=== PATIENT | male | born 1990 | race Caucasian/White ===

== ENCOUNTER 2016-10-03 17:25 | Observation (INO) | payer OTHER ==
[~2016-10-03] VITALS: Ht 172.7 cm; Wt 77.1 kg
[~2016-10-03 17:25] MED LIST: KEFLEX500 MG PO; ULTRAM(MONOGRAP50 MG PO
--- NOTE | 2016-10-03 17:28 | NUR ---
SECUIRTY AT BEDSIDE FOR WANDING
--- NOTE | 2016-10-03 17:31 | ED PSYCHIATRIC COMPLAINT ---
See Addendum History of Present Illness General Chief Complaint: Psychiatric Related Complaint Stated Complaint: BIBA FOR +SI Source: patient, old records, police Exam Limitations: no limitations Vital Signs & Intake/Output Vital Signs & Intake/Output Vital Signs Date Time Temp Pulse Resp B/P Pulse O2 O2 Flow FiO2 Ox Delivery Rate 10/05 0700 98.8 71 16 106/56 99 Room Air 10/05 0211 98.9 88 18 95/55 95 Room Air 10/04 1823 97.4 76 18 106/55 97 Room Air 10/04 1600 97.7 80 20 103/64 10/04 1600 97.7 80 20 103/64 97 Room Air 10/04 1358 98.2 68 18 96/54 97 Room Air 10/04 1200 96.1 90 20 100/51 10/04 1130 96.1 90 20 100/51 97 Room Air Allergies Uncoded Allergies: CATS/DOGS/POLLEN (05/13/13) Reconcile Medications No Known Home Medications Triage Nurses Notes Reviewed? yes Onset: Gradual Duration: day(s): (3), constant Timing: recent history Severity: mild, moderate Severity Numbers: 6 Associated Symptoms: suicidal ideation HPI: 25-year-old male with history of depression presents brought in by ambulance on police paper after he sent E-MAILS to his ex-girlfriend making suicidal comments over the weekend and that he has had thoughts of wanting to kill himself. There is also report on the police paper that patient has been sending her pictures of animals. The patient was admitted in June of this past year for suicidal ideation at the time. He states he's been doing well and that "if I meant it I wouldn't be here right now" he states that he is currently employed living with his sister and father. He states he is not taking any psychiatric medications. He was prescribed medications in July which she is not aware of at this time are states he stopped taking them because he did not want to. He reports to smoking marijuana today however denies any other drug use. He states last time he drank alcohol was over the weekend when he made these statements. The patient is otherwise currently without any complaints. The patient denies depression anxiety and insomnia recent weight loss (ANNA MICHAEL,RYANN) Past History Travel History Traveled to [place] past 21 day No Medical History Any Pertinent Medical History? see below for history Neurological: NONE EENT: NONE Cardiovascular: NONE Respiratory: asthma Gastrointestinal: NONE Hepatic: NONE Renal: NONE Musculoskeletal: NONE Psychiatric: depression, insomnia, substance abuse (regular use of Marijuana ), had used Vyvanse "from friends" until 02/2016 had drank a six-pack of beer for two weeks in 05/2016 but then gave that up "because it was making me more depressed" Endocrine: NONE Blood Disorders: NONE Cancer(s): NONE STRATEGY LEAD/Reproductive: NONE History of MRSA: No History of VRE: No History of CDIFF: No Tetanus Vaccine: 03/24/15 Surgical History Surgical History: Right little finger tendon repair s/p work related accident/ injury. Psychosocial History Who do you live with Father Services at Home None What is your primary language Swazi Family History Family History, If Any: FATHER (Depression). MOTHER (DepressionAsthma). Hx Contributory? No (RYANN MENENDEZ) Review of Systems Review of Systems Constitutional: Reports: see HPI. All Other Systems: Reviewed and Negative Comments Review of systems: See HPI, All other systems negative. Constitutional, no chills no fever, no malaise HEENT: No visual changes no sore throat no congestion Cardiovascular: No chest pain , no palpitation Skin, no rashes, no change in skin Respiratory: No dyspnea no cough no sputum GI: No nausea no vomiting, no diarrhea, : No dysuria Muscle skeletal: No joint pain, no back pain, no neck pain, Neurologic: No numbnessno headache Psych: No stress no anxiety no depression,. 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 moist mucous membranes. Neck: Supple, normal range of motion Back: Nontender, no CVA tenderness. Full range of motion Cardiovascular: Regular rate and rhythms no murmurs rubs Respiratory: No respiratory distress. Patient speaking in full complete sentences. Breath sounds clear to auscultation bilaterally: NO W/R/R Abdomen: Soft, nontender Extremity: No edema, full range of motion of extremities Neuro: Alert oriented x3, motor sensory normal,There were no obvious focal neurologic abnormalities. Skin: No appreciable rash on exposed skin, skin is warm and dry. Psych: Mood and affect is normal, memory and judgment is normal. SAD PERSONS SAD PERSONS Response Value Male Sex? yes 1 Previous Attempts/Psych Care yes 1 Excessive Ethanol/Drug Use? yes 1 Rational Thinking Loss? yes 2 Single//? yes 1 Social Support? has support 0 Total 6 SAD PERSONS Done? yes (ANNA MICHAEL,RYANN) Progress Differential Diagnosis: drug intoxication, drug overdose, electrolyte abnormality, depression anxiety and bipolar Plan of Care: Orders Procedure Date/time Status Admit to inpatient psych 10/05 1004 Active Discharge Patient 10/05 1004 Active Regular Diet 10/04 D Active Continuous Observation Monitor 10/04 2100 Active Continuous Observation Monitor 10/04 1700 Active Continuous Observation Monitor 10/04 1300 Active Patient Data - inpatient psych 10/04 1146 Active Admit to inpatient psych 10/04 1146 Active Lab Add-on Test 10/04 UNK Active Vital Signs 10/04 UNK Active Nursing Misc 10/04 UNK Active CIWA 10/04 UNK Active Alternative Nursing Therapy 10/04 UNK Active Activity/Ambulation 10/04 UNK Active THYROID STIMULATING HORMONE 10/03 1746 Complete LIPID PANEL 10/03 1746 Complete GLYCOSYLATED HGB 10/03 1738 Active Current Medications Sig/Abelardo Start time Last Medication Dose Stop Time Status Admin Acetaminophen 650 MG Q6P PRN 10/04 1200 AC (Tylenol) Al Hydroxide/Mg 30 ML Q4-6 PRN PRN 10/04 1200 AC Hydroxide (Maalox Plus) Lorazepam 2 MG Q2P PRN 10/04 1200 AC (Ativan) Lorazepam 1 MG Q2P PRN 10/04 1200 AC (Ativan) Magnesium Hydroxide 30 ML AT BEDTIME PRN 10/04 1200 AC (Milk Of Magnesia) Folic Acid 1 MG DAILY 10/04 1151 AC (Folic Acid) Multivitamins 1 TAB DAILY 10/04 1151 AC (Theragran Vitamins) Thiamine HCl 100 MG DAILY 10/04 1151 AC (Vitamin B1) Labs ordered old records reviewed patient calm cooperative at this time denies suicidal ideation at this time crisis consult ordered. 2039 case d/w dr fernandez pendig pt reeval in the am (RYANN MENENDEZ) 7:19 am 10/04 Patient signed out to me by Dr. Fernandez. Pending crisis evaluation and disposition. 10/05/2016 7:20:54 AM Patient signed out to me by Dr. Aguirre. Pending crisis admission. (MARYELLEN NATION MD) Hand-Off Endorsed To: MAURICE FERNANDEZ MD Endorsed Time: 2100 Pending: consult (crisis) (RYANN MENENDEZ) Hand-Off Endorsed To: MARYELLEN NATION MD Endorsed Time: 0700 Pending: consult (MAURICE FERNANDEZ MD) Departure Departure Disposition: STILL A PATIENT Condition: Stable Clinical Impression Primary Impression: Suicidal ideation Secondary Impressions: Cannabis abuse Referrals: WILBER LO APRN (PCP/Family) Departure Forms: Customer Survey General Discharge Information Prescriptions: Current Visit Scripts No Known Home Medications (RYANN MENENDEZ) PA/PRECAST WORKER Co-Sign Statement Statement: ED Attending supervision documentation- [X] I saw and evaluated the patient. I have also reviewed all the pertinent lab results and diagnostic results. I agree with the findings and the plan of care as documented in the PA's/PRECAST WORKER's documentation. [X] I have reviewed the ED Record and agree with the PA's/PRECAST WORKER's documentation. [] Additions or exceptions (if any) to the PAs/PRECAST WORKER's note and plan are summarized below: [] (MAURICE FERNANDEZ MD) Departure Time of Disposition: 1005 Psych Admission Note Psychiatric Admission: I have seen and evaluated TRENT GARCIA III. I have also reviewed all the pertinent lab results and diagnostic results. TRENT GARCIA III will be admitted to our inpatient Psychiatric unit for treatment and care. (MARYELLEN NATION MD) ED Attending Observation Initial Observation Note: I have seen and personally examined TRENT GARCIA III on 10/03/16 at 2219. I agree with the current emergency department documentation. The disposition (admission or discharge) is uncertain at this time, he needs a period of observation for the following reason(s): [Patient has been seen and evaluated by the conservation worker. The patient is very impulsive and is having bursts of anger. The patient is to be observed in the emergency department overnight for reevaluation in the morning. At this point they do not know if the patient will be admitted or be able to be discharged in the morning. Patient is going to require one-to-one monitoring for safety tonight. If the patient up bursts continued to escalate he may require chemical sedation.] The ED Nurse caring for this patient has been personally informed as to what the patient is being observed for. Observation Re-Evaluation: I have reevaluated TRENT GARCIA III on 10/04/16 at 0144. The physical findings that support the continued need to observe this patient include [patient sleeping peacefully. No further outbursts. Lungs are clear to auscultation. Cardiac exam is regular rate and rhythm.]. (REBECCA GRANADOS,MAURICE Álvarez) Initial Observation Note: I have seen and personally examined TRENT GARCIA III on 10/05/16 at 1005. I agree with the current emergency department documentation. The disposition (admission or discharge) is uncertain at this time, he needs a period of observation for the following reason(s): The ED Nurse caring for this patient has been personally informed as to what the patient is being observed for. Observation Re-Evaluation: I have reevaluated TRENT GARCIA III on 10/04/16 at 0732. The physical findings that support the continued need to observe this patient include [PATIENT RESTING COMFORTABLY, WAITING CRISIS EVALUATION]. Observation Discharge: I have reevaluated TRENT GARCIA III on 10/05/16 at 1005. The patient is: (): Stable for discharge ([X]): To be admitted to Nursing Floor (): To be placed in Observation on Nursing Floor (): For transfer to other facility The patient was being observed for [SUICIDAL IDEATION] As a result of that observation, I have determined [ADMISSION TO [facility]]. (RIOS GRANADOS,MARYELLEN)
--- NOTE | 2016-10-03 17:31 | NUR ---
25 YO MALE BIBA FROM HOME ON . PT STATES HE SENT HIS EX GIRLFRIEND A TEXT MESSAGE ON MONDAY MAKING +SI COMMENTS. "SEE I OBVISOUSLY DIDNT MEAN IT BECAUSE IM STILL HERE" PT STATES "YA KNOW YOU SAY STUPID STUFF WHEN YOU ARE DRUNK" PT DENIES SI/HI. DENIES ALCOHOL OR DRUG USE TODAY. ADMITS TO SMOKING MARIJUANA SOMETIMES. PT CALM AND COOPERATIVE AT THIS TIME. SITTER PRESENT.
--- NOTE | 2016-10-03 17:40 | NUR ---
PA AT BEDSIDE FOR EVAL
--- NOTE | 2016-10-03 17:51 | NUR ---
BLOOD WORK AND URINE COLLECTED AND SENT TO LAB. PT REMAINS CALM AND COOPERATIVE AT THIS TIME. SITTER REMAINS PRESENT
[2016-10-03 18:01] LABS: ABSOLUTE BASOPHIL COUNT 0 /CUMM (0.0-0.2); ABSOLUTE EOSINOPHIL COUNT 0.1 /CUMM (0.0-0.7); ABSOLUTE GRANULOCYTE CT 2.7 /CUMM (1.4-6.5); ABSOLUTE LYMPH COUNT 1.8 /CUMM (1.2-3.4); ABSOLUTE MONOCYTE COUNT 0.5 /CUMM (0.10-0.60); BASOPHIL % 0.9 % (0.0-2.0); EOSINOPHIL % 2.7 % (0-5); GRANULOCYTE % 51.9 % (42.2-75.2); HEMATOCRIT 46.6 % (42-52); MEAN CORPUSCULAR HGB 31.9 PG (27.0-31.0); MEAN CORPUSCULAR HGB CONC 33.8 G/DL (33.0-37.0); MEAN CORPUSCULAR VOLUME 94.3 FL (80.0-94.0); PLATELET COUNT 284 /CUMM (130-400); RBC DISTRIBUTION WIDTH 12.8 % (11.5-14.5); RED BLOOD CELL CT 4.94 /CUMM (4.70-6.10); WHITE BLOOD CELL COUNT 5.2 /CUMM (4.8-10.8)
--- NOTE | 2016-10-03 18:50 | NUR ---
PT RESTING ON STRETCHER. OFFERS NO COMPLINATS. AWARE WAITING TO SEE CRISIS AT THIS TIME. WILL CTM. SITTER REMAINS PRESENT
--- NOTE | 2016-10-03 18:57 | NUR ---
PT REPORTS TO THIS RN, "I WANT TO LEAVE THIS [facility]." PT VERBALLY DEESCALATED AND CRISIS AWARE PT IS BECOMING AGITATED AND WILL SPEAK TO PATIENT ABOUT PLAN OF CARE.
--- NOTE | 2016-10-03 19:11 | NUR ---
ASSUMED CARE OF PT PER RN CAROL, PT INFORMED THAT PT WILL BE SEEN BY CRISIS NEXT ON THE LIST. WILL CONTINUE TO MONITOR.
--- NOTE | 2016-10-03 19:38 | ED PSYCH CRISIS CONSULTATION ---
See Addendum Crisis Consult Basic Assessment Date of Consult: 10/03/16 Responsible Person/Accompanied By: LUPE Insurance Authorization: Insurance #1: Insurance name: [employer] Phone number: Policy number: [id number] Group number: [id number] Authorization number: ED Provider: Patient's ED Provider: RYANN MENENDEZ Primary Care Physician: Patient's PCP: WILBER LO APRN PCP's Current Psychiatrist: None/stopped [facility] in Aug 2016 Chief Complaint: Psychiatric Related Complaint Patient's Quote: "I got drunk a week ago, and said I wanted to hurt myself, I don't want to Present Illness: Pt is a 25 year old male, arriving to ER due to texting an ex girlfriend that he was going to kill himself, while he was intoxicated, pt states this was on Monday. He then didn't return home until today when he arrived his Father told him the police were looking for him, and he was brought here for further evlauation. Pt is aggravated and states "this is a dis service to anyone". Pt indicates he does not want to harm himself, and reports he only said that via text while he was drunk. Pt states he does not want to drink anymore and reports he was actually taking care of job related things today and was feeling positive until he had to come to the emergency room. [facility]2016 and did not complete [facility], pt does not have current providers and is no longer taking his antidepressant. Pt tox screen is postive for [facility]. Pt lives with father and sister (see note, I spoke with sister). I also spoke with his Mother, who indicates pt sent her similar text message about self harm. At the very least pt is unpredictable, and impulsive. Mother states 'he is his own worse enemy". Pt had been discharged on Wellbutrin, but had been prescribed xanax and lexapro by an outpatient provider whom he no longer sees. He does not comply with medications. Patient's Address: [address] [place] [address] Other Phone Number: Who Do You Live With? Family (Father and sister) Family/Informants Interviewed: Nicolle his sister has called, and reports he is a very senstive and reports he doesn't know how to take care of himself emotionally, and reports he needs to learn how to grow up. Mother Lupis Sharma [phone] wants an update, she is unsure he can be safe at this point. Allergies - Uncoded Allergies: CATS/DOGS/POLLEN (05/13/13) Current Medications - No Known Home Medications Laboratory Results: Laboratory Tests 10/03/16 1746: Serum Alcohol < 10.0 10/03/16 1746: Anion Gap 16, Estimated GFR > 60, BUN/Creatinine Ratio 15.0, Glucose 88, Calcium 9.7, Total Bilirubin 1.6 H, AST 18, ALT 19 L, Alkaline Phosphatase 89, Total Protein 7.2, Albumin 4.6, Globulin 2.6, Albumin/Globulin Ratio 1.8, CBC w Diff NO MAN DIFF REQ, RBC 4.94, MCV 94.3 H, MCH 31.9 H, RDW 12.8, MPV 9.0, Gran % 51.9, Lymphocytes % 35.0, Monocytes % 9.5 H, Eosinophils % 2.7, Basophils % 0.9 , Absolute Granulocytes 2.7, Absolute Lymphocytes 1.8, Absolute Monocytes 0.5, Absolute Eosinophils 0.1, Absolute Basophils 0, PUBS MCHC 33.8, Urine Opiates Screen 247.00, Methadone Screen < 40, Barbiturate Screen < 60, Ur Phencyclidine Scrn < 6.00, Amphetamines Screen < 100, U Benzodiazepines Scrn < 85, Urine Cocaine Screen < 50, Urine Cannabis Screen > 80.00 H (DAVID GONG,REY) Basic Assessment Primary Care Physician: Patient's PCP: WILBER LO APRN PCP's (KJ GONG,ROMY) Past History Past Medical History Neurological: NONE EENT: NONE Cardiovascular: NONE Respiratory: asthma Gastrointestinal: NONE Hepatic: NONE Renal: NONE Musculoskeletal: NONE Psychiatric: depression, insomnia, substance abuse (regular use of Marijuana ), had used Vyvanse "from friends" until 02/2016 had drank a six-pack of beer for two weeks in 05/2016 but then gave that up "because it was making me more depressed" Endocrine: NONE Blood Disorders: NONE Cancer(s): NONE 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 Psychosocial History Strengths/Capabilities: The patient has shown good insight into his need for treatment in the past. He also has a supportive family. Physical Limitations (Interventions): None noted Psychiatric Treatment History Psych Treatment Psychiatric Treatment Yes Inpatient Treatment Yes Outpatient Treatment Yes Location of Treatment [facility] Reason for Treatment Depression/etoh abuse Dates of Treatment Jul 19 2016 and Jul 2016 (IOP) Response to Treatment did well in [facility] and felt better, at the IOP he arrived drunk and left the building the police were called. Diagnosis by History: F32.3 MDD, severe recurrent Cannabis Use D/O Substance Use/Abuse History Drug Use/Abuse 1 Substances Used/Abused Yes Substance Used/Abused Alcohol First Use 17 years Last Used Monday How much used/taken unknown How often unknown For how long on and off for past month Route of use oral Drug Use/Abuse 2 Substances Used/Abused Yes Substance Used/Abused Marijuana First Use 20 years Last Used today How much used/taken unknown How often daily For how long years Route of use smoke Substance Abuse Treatment Substance Abuse Treatment Past Substance Abuse TX Yes Inpatient Treatment No Outpatient Treatment Yes Location of Treatment [facility] Reason for Treatment etoh/[place] Dates of Treatment 2015 Response to Treatment didn't complete IOP (REY HERNANDEZ LCSW) Current Mental Status Mental Status Orientation: Person, Place, Situation Affect: Anxious, Angry, Variable Speech: Loud, WNL Neuro-vegetative: Energy Increased, Helpless, Hyperactivity, Sleep Disturbance Appearance Appearance- Dress/Hygiene: WNL Behaviors Thought Process: Irrational Thought Content: Entitled, Grandiose, Paranoid Memory: WNL Insight: Poor SI/HI Risk Assessment Past Suicidal Ideation/Attempts Yes Current Suicidal Ideation/Att Yes Past Homicidal Ideation/Att: No Current Homicidal Ideation/Attempts No Degree of Intent: States Intent Danger To: Self Gravely Disabled: Lack of Insight, Poor Impulse Control Risk Factors: SA/MH hospitalized, substance abuse, poor impulse control, male, limited support Lethality Ratin PTSD Checklist PTSD Done? patient declined ED Management Sitter: Yes Restraints: No (REY HERNANDEZ LCSW) DSM5/PS Stressors/Medical Prob Diagnosis' (DSM 5, Stressors, Medical): MDD recurrent severe F33.2 Cannabis D/O Moderate F12.20 Current GAF: 28 (REY HERNANDEZ LCSW) Departure Disposition Psych Medical Clearance Date: 10/03/16 Medically Cleared at: 1930 Time Started: 1929 Time Ended: 2035 Psychiatrist Consulted: Svitlana Hemphill Disposition Established: 10/03/16 Time Disposition Established: 2035 Plan for Disposition - Modality: Hold Over Follow-up Appt Date: 10/04/16 Rationale for Disposition: Consulted with Dr. Shane pt to be held over night for re eval in morning. Pt denying si, although had sent concerning texts this weekend to ex gf and Mother. Pt angry and impulsive. Additional Instructions: Not at this time Referrals WILBER LO APRN (PCP/Family) (REY HERNANDEZ LCSW) Disposition Psych Medical Clearance Date: 10/04/16 Medically Cleared at: 1030 Time Started: 1029 Time Ended: 1044 Psychiatrist Consulted: Bandar Siegel MD Disposition Established: 10/04/16 Time Disposition Established: 1044 Plan for Disposition - Modality: Inpatient Psychiatry Facility: [facility] Rationale for Disposition: safety and stabilization Type of IP Admission: PEC (ROMY UNDERWOOD LCSW) Addendum Addendum Pt was re-evaluated by crisis this morning following several verbal outbursts of profanity, agitation, and mood lability. Pt was sitting in his bed whistling loudly when this clinician entered his room. He provided minimal insight into the severity of the concerns that lead him to his ED visit. Pt took no responsibility for his behavior and blames others calling them names. This clinician spoke to pt's Mom who was very concerned for pt identifying that he has been having severe mood swings and she no longer recognizes her son. This clinician read pt's hx from his prior admit in Jun 2016 and pt has a hx of suicide attempts and impulsive behavior. Given family concerns, hx of suicide attempts, poor insight, impulsive behavior, and labile mood as well as suicidal text messages and disappearance for several days following the text messages this clinician has great concerns for pt's safety risks. Case reviewed with Dr. Siegel of Psychiatry and pt will be admitted to [facility] as pt is refusing to be admitted and wants to be discharged. When this clinician explained to pt that he will be admitted and why, he threw his lunch tray at this clinician and started yelling and swearing. He requires security intervention and chemical restraint. (KJ GONG,ROMY)
--- NOTE | 2016-10-03 20:12 | NUR ---
PT BECOMING AGITATED SINCE HE WAS INFORMED BY CRISIS THAT HE NEEDS A REEVAL IN THE MORNING. PT SWEARING AND BECOMING FRUSTRATED. THIS RN INFORMED PT HE NEEDS TO STAY INTIL THE MORNING
--- NOTE | 2016-10-03 20:44 | NUR ---
PT MOVED TO RM 15 DUE TO DISTURBANCE AND VIOLENT LANGUAGE IN HALLWAY
--- NOTE | 2016-10-03 21:33 | NUR ---
PT MEDICATED WITH SEROQUEL 25MG PO AND GIVEN SALTINES.
--- NOTE | 2016-10-03 22:42 | NUR ---
PT SLEEPING WITH RR, SITTER IN PLACE AT DOOR
--- NOTE | 2016-10-04 00:52 | NUR ---
PT SLEEPING WITH RR, TOSSING AND TURNING. SITTER IN PLACE AT DOOR
--- NOTE | 2016-10-04 05:19 | NUR ---
PT RESTING ON BED. RR NOTED. SITTER IN PLACE.
--- NOTE | 2016-10-04 06:44 | NUR ---
PT SLEEPING WITH RR, THIS RN CHECKED VITALS, VVSS. PT INFORMED BREAKFAST ORDERED
--- NOTE | 2016-10-04 07:30 | NUR ---
RESTING ON BED. RR WNL. Informed waiting has been performed.
--- NOTE | 2016-10-04 09:05 | NUR ---
PT AWAKE, AMBULATED TO BATHROOM WITH STEADY GAIT. SWEARING AT STAFF. PROVIDED BREAKFAST. AWARE HE IS A CRISIS RE-EVAL TODAY. Informed waiting has been performed.
--- NOTE | 2016-10-04 09:35 | NUR ---
PT ACTING OUT. AWARE HE IS NEXT TO BE SEEN BY CRISIS. ADVISED TO REMAIN CALM. Informed waiting has been performed.
--- NOTE | 2016-10-04 10:29 | NUR ---
CRISIS AT BEDSIDE.
--- NOTE | 2016-10-04 11:15 | NUR ---
PT WAS INFORMED BY CRISIS THAT HE WILL NEED TO BE ADMITTED TO [facility]. 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 PT MEDICATED WITH IM HALDOL, BENADRYL AND ATIVAN. AWARE HIS AGGRESSIVE BEHAVIOR WILL NOT BE TOLERATED. COOPERATIVE FOR IM INJECTIONS. Informed waiting has been performed.
--- NOTE | 2016-10-04 11:55 | NUR ---
PT NOT GIVEN PO AM VITAMINS. PT CURRENTLY RESTING COMFORTABLY. NO LONGER YELLING OR AGGRESSIVE WITH STAFF.
[2016-10-04 12:00] VITALS: BP 100/51
--- NOTE | 2016-10-04 12:02 | IP CRISIS DIAG ASSESS PSYCH ---
See Addendum Diagnostic Assessment Basic Assessment Insurance Authorization: Insurance #1: Insurance name: BLAIR O Phone number: [phone] Policy number: [id number] Group number: [id number] Authorization number: Spoke to Shivam at [facility] who informed that a clinician will call back with in 24 hours to review clinical to do insurance precert. Primary Care Physician: Patient's PCP: WILBER LO APRN PCP's Patient's Quote: "I got drunk a week ago, and said I wanted to hurt myself, I don't want to Present Illness: Pt is a 25 year old male, arriving to ER due to texting an ex girlfriend that he was going to kill himself, while he was intoxicated, pt states this was on Monday. He then didn't return home until today when he arrived his Father told him the police were looking for him, and he was brought here for further evlauation. Pt is aggravated and states "this is a dis service to anyone". Pt indicates he does not want to harm himself, and reports he only said that via text while he was drunk. Pt states he does not want to drink anymore and reports he was actually taking care of job related things today and was feeling positive until he had to come to the emergency room. [facility] and did not complete [facility], pt does not have current providers and is no longer taking his antidepressant. Pt tox screen is postive for [facility]. Pt lives with father and sister (see note, I spoke with sister). I also spoke with his Mother, who indicates pt sent her similar text message about self harm. At the very least pt is unpredictable, and impulsive. Mother states 'he is his own worse enemy". Pt had been discharged on Wellbutrin, but had been prescribed xanax and lexapro by an outpatient provider whom he no longer sees. He does not comply with medications. Consulted with Dr. Shane pt to be held over night for re eval in morning. Pt denying si, although had sent concerning texts this weekend to ex gf and Mother. Pt angry and impulsive. REY HERNANDEZ CLEAN RICE BROKER> 10/03/16 Pt was re-evaluated by crisis this morning following several verbal outbursts of profanity, agitation, and mood lability. Pt was sitting in his bed whistling loudly when this clinician entered his room. He provided minimal insight into the severity of the concerns that lead him to his ED visit. Pt took no responsibility for his behavior and blames others calling them names. This clinician spoke to pt's Mom who was very concerned for pt identifying that he has been having severe mood swings and she no longer recognizes her son. This clinician read pt's hx from his prior admit in Jun 2016 and pt has a hx of suicide attempts and impulsive behavior. Given family concerns, hx of suicide attempts, poor insight, impulsive behavior, and labile mood as well as suicidal text messages and disappearance for several days following the text messages this clinician has great concerns for pt's safety risks. Case reviewed with Dr. Siegel of Psychiatry and pt [facility] as pt is refusing to be admitted and wants to be discharged. When this clinician explained to pt that he will be admitted and why, he threw his lunch tray at this clinician and started yelling and swearing. He required security intervention and chemical restraint. ROMY UNDERWOOD CLEAN RICE BROKER> 10/04/16 Patient's Address: [address] [place] [address] Other Phone Number: Who Do You Live With? Family (Father and sister) Feel Safe Where You Live? Yes Feel Safe in Your Relationship Yes Marital Status: single Do You Have Children? No Primary Language? [place] Language(s) Spoken At Home: [place] Family/Informants Interviewed: Nicolle his sister has called, and reports he is a very senstive and reports he doesn't know how to take care of himself emotionally, and reports he needs to learn how to grow up. Mother Lupis [phone] wants an update, she is unsure he can be safe at this point. Allergies - Uncoded Allergies: CATS/DOGS/POLLEN (05/13/13) Current Medications - No Known Home Medications Lab Results: Laboratory Tests 10/03/16 1746: Serum Alcohol < 10.0 10/03/16 1746: Anion Gap 16, Estimated GFR > 60, BUN/Creatinine Ratio 15.0, Glucose 88, Calcium 9.7, Total Bilirubin 1.6 H, AST 18, ALT 19 L, Alkaline Phosphatase 89, Total Protein 7.2, Albumin 4.6, Globulin 2.6, Albumin/Globulin Ratio 1.8, Triglycerides 98, Cholesterol 123, LDL Cholesterol, Calc 61 L, HDL Cholesterol 43, Cholesterol/HDL Ratio 3, TSH Pending, CBC w Diff NO MAN DIFF REQ, RBC 4.94, MCV 94.3 H, MCH 31.9 H, RDW 12.8, MPV 9.0, Gran % 51.9, Lymphocytes % 35.0, Monocytes % 9.5 H, Eosinophils % 2.7, Basophils % 0.9, Absolute Granulocytes 2.7, Absolute Lymphocytes 1.8, Absolute Monocytes 0.5, Absolute Eosinophils 0.1, Absolute Basophils 0, PUBS MCHC 33.8, Urine Opiates Screen 247.00, Methadone Screen < 40, Barbiturate Screen < 60, Ur Phencyclidine Scrn < 6.00, Amphetamines Screen < 100, U Benzodiazepines Scrn < 85, Urine Cocaine Screen < 50, Urine Cannabis Screen > 80.00 H 10/03/16 1738: Hemoglobin A1c Pending Toxicology Screen Completed? Yes Results: positive Past History Past Medical History Medical History: Asthma Past Surgical History Surgical History none Abuse/Trauma History Trauma History/Current Trauma: Denies Legal History Current Legal Status: none Have you ever been arrested? 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 He also has a supportive family. Physical Limitations (Interventions): None noted Psychiatric Treatment History Psych Treatment Psychiatric Treatment Yes Inpatient Treatment Yes Outpatient Treatment Yes Location of [facility] Reason for Treatment Depression/etoh abuse Dates of Treatment Jul 19 2016 and Jul 2016 (IOP) Response to Treatment did well in [facility] and felt better, at the IOP he arrived drunk and left the building the police were called. Diagnosis by History: F32.3 MDD, severe recurrent Cannabis Use D/O Risk Factors: SA/MH hospitalized, substance abuse, poor impulse control, male, limited support Substance Use/Abuse History Drug Use/Abuse minimum 12mo Hx Substances Used/Abused Yes Substance Used/Abused Marijuana First Use 20 years Last Used today How much used/taken unknown How often daily For how long years Route of use smoke Substance Abuse Treatment Substance Abuse Treatment Past Substance Abuse TX Yes Inpatient Treatment No Outpatient Treatment Yes Location of Treatment IOP Reason for Treatment etoh/marajuana Dates of Treatment 2016 Response to Treatment didn't complete IOP Sexual History Sexual Concerns: None noted Education History Highest Level of Education: high school/GED Preferred Learning Style: auditory Current Mental Status Mental Status Orientation: Person, Place, Situation Affect: Anxious, Angry, Variable Speech: Loud, WNL Neuro-vegetative: Energy Increased, Helpless, Hyperactivity, Sleep Disturbance Appearance Appearance- Dress/Hygiene: WNL Behaviors Thought Process: Irrational Thought Content: Entitled, Grandiose, Paranoid Memory: WNL Insight: Poor SI/HI Risk Assessment - Minimum 6mo History- Past Suicidal Ideation/Attempts Yes Current Suicidal Ideation/Att Yes Past Homicidal Ideation/Att: No Current Homicidal Ideation/Attempts No Degree of Intent: States Intent Danger To: Self Gravely Disabled: Lack of Insight, Poor Impulse Control Risk Factors: SA/MH hospitalized, substance abuse, poor impulse control, male, limited support Lethality Ratin Needs/Init TX Plan/Goals: safety and stabilization of sx, individual group and family therapy, med eval AUDIT-C Questionnaire: AUDIT-C Questionnaire: Response Value ETOH use in the past year 2-4 times/week 3 # drinks typical/day 7-9 3 6 or > drinks per occasion Weekly 3 Total 9 DSM5/PS Stressors/Medical Prob Diagnosis' (DSM 5, Stressors, Medical): MDD recurrent severe F33.2 Cannabis D/O Moderate F12.20 Current GAF: 28
--- NOTE | 2016-10-04 12:30 | NUR ---
SLEEPING SOUNDLY. RR WNL.
--- NOTE | 2016-10-04 12:46 | SOCIAL WORKER SOCIAL HX PSYCH ---
See Addendum Social History Basic Assessment Insurance Authorization: Insurance #1: Insurance name: BLAIR BONE Phone number: Policy number: [id number] Group number: [id number] Authorization number: [id number] Curr Source of Income/Entitlements: father Primary Care Physician: Patient's PCP: WILBER LO APRN PCP's Present Problem: Pt is a 25 year old male, arriving to ER due to texting an ex girlfriend that he was going to kill himself, while he was intoxicated, pt states this was on Monday. He then didn't return home until today when he arrived his Father told him the police were looking for him, and he was brought here for further evlauation. Pt is aggravated and states "this is a dis service to anyone". Pt indicates he does not want to harm himself, and reports he only said that via text while he was drunk. Pt states he does not want to drink anymore and reports he was actually taking care of job related things today and was feeling positive until he had to come to the emergency room. [facility]2016 and did not complete [facility], pt does not have current providers and is no longer taking his antidepressant. Pt tox screen is postive for [facility]. Pt lives with father and sister (see note, I spoke with sister). I also spoke with his Mother, who indicates pt sent her similar text message about self harm. At the very least pt is unpredictable, and impulsive. Mother states 'he is his own worse enemy". Pt had been discharged on Wellbutrin, but had been prescribed xanax and lexapro by an outpatient provider whom he no longer sees. He does not comply with medications. Consulted with Dr. Shane pt to be held over night for re eval in morning. Pt denying si, although had sent concerning texts this weekend to ex gf and Mother. Pt angry and impulsive. REY HERNANDEZ FUSE SPOOLER> 10/03/16 Pt was re-evaluated by crisis this morning following several verbal outbursts of profanity, agitation, and mood lability. Pt was sitting in his bed whistling loudly when this clinician entered his room. He provided minimal insight into the severity of the concerns that lead him to his ED visit. Pt took no responsibility for his behavior and blames others calling them names. This clinician spoke to pt's Mom who was very concerned for pt identifying that he has been having severe mood swings and she no longer recognizes her son. This clinician read pt's hx from his prior admit in Jun 2016 and pt has a hx of suicide attempts and impulsive behavior. Given family concerns, hx of suicide attempts, poor insight, impulsive behavior, and labile mood as well as suicidal text messages and disappearance for several days following the text messages this clinician has great concerns for pt's safety risks. Case reviewed with Dr. Siegel of Psychiatry and pt [facility] be [facility] as pt is refusing to be admitted and wants to be discharged. When this clinician explained to pt that he will be admitted and why, he threw his lunch tray at this clinician and started yelling and swearing. He required security intervention and chemical restraint. ROMY UNDERWOOD FUSE SPOOLER> 10/04/16 Primary Language? Norwegian Language(s) Spoken At Home: Norwegian Living Situation Rents or Owns Home? rents Other Living Arrangement: lives with father and sister Feel Safe Where You Are Living Yes Feel Safe in Relationships? Yes Allergies - Uncoded Allergies: CATS/DOGS/POLLEN (05/13/13) Current Medications - No Known Home Medications Past History Past Medical History Neurological: NONE EENT: NONE Cardiovascular: NONE Respiratory: asthma Gastrointestinal: NONE Hepatic: NONE Renal: NONE Musculoskeletal: NONE Psychiatric: depression, insomnia, substance abuse (regular use of Marijuana ), had used Vyvanse "from friends" until 02/2016 had drank a six-pack of beer for two weeks in 05/2016 but then gave that up "because it was making me more depressed" Endocrine: NONE Blood Disorders: NONE Cancer(s): NONE COLOR TESTER/Reproductive: NONE Past Surgical History Surgical History: Right little finger tendon repair s/p work related accident/ injury. /Family History Place/Country of Origin: [place] Childhood Family Constellation: Parents and his sister Primary Childhood Caretakers: father, mother Family Life During Childhood: "Not bad" He states that he was raised by both parents until they and then he spent time at both households. DCF Involvement? No Explain: N/A Mother's Age (Current/): 49 Relationship w/Mother: "Good" Father's Age (Current/): 54 Relationship w/Father: "good" Any Sibling(s)? Yes Sibling's Gender(s)/Age(s): female Sibling 1: Relationship w/Sibling(s): The patient reports that he lives with his sister and has an ok relationship with her. Relationship w/Friends: Unknown Family Psych/Sub Abuse/Add Hx: Unknown Abuse/Trauma History Trauma History/Current Trauma: Denies Legal History Legal Guardian/Address/Phone: Self Have you ever been arrested Yes Number of Arrests: 1 Hx of Juvenile Legal Charges? Yes If Yes: N/A Hx of Adult Legal Charges? No Civil Proceedings: Pt. denies Domestic Relations Court: Pt. denies Child Protective Serv Involvmnt Pt. 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 He also has a supportive family. Weaknesses: currently has no insight into his need for tx Physical Limitations (Interventions): None noted Last Physical: N/A ADL Limitations: None noted [place]/Social/Peer Relations He does note having some friends in his life. Meaningful Activities: Watch tv Childhood Orthodoxy: no adventism stated Current Orthodoxy Affiliation: no adventism stated Is Spirituality Important to You? "NO" Cultural/Ethnic Issues: None noted Are There Developmental Issues? No If Yes, Explain: n/A Milestones Achieved: fine motor, gross motor Psychiatric Treatment History Psych Treatment Inpatient Treatment Yes Outpatient Treatment Yes Location of Treatment [facility] Reason for Treatment Depression/etoh abuse Dates of Treatment Jul 19 2016 and Jul 2016 (IOP) Response to Treatment did well in [facility] and felt better, at the IOP he arrived drunk and left the building the police were called. Precipitating Factors: sent suicidal text to ex girlfriend and familoy and then could not be found for several days Current Camera Prototyping Engineer: Babatunde Willams Treatment of Prior Episodes: Juan C Willams when he was in high school Diagnosis: F32.3 MDD, severe recurrent Cannabis Use D/O Psychodynamic Issues: n/a Risk Factors: SA/MH hospitalized, substance abuse, poor impulse control, male, limited support Substance Use/Abuse History Drug Use/Abuse Substance Used/Abused Marijuana First Use 20 years Last Used today How much used/taken unknown How often daily For how long years Route of use smoke Have You Ever Attended AA? No Substance Abuse Treatment Substance Abuse Treatment Inpatient Treatment No Outpatient Treatment Yes Location of Treatment IOP Reason for Treatment etoh/marajuana Dates of Treatment 2016 Response to Treatment didn't complete IOP Sexual History Sexual Concerns: None noted Education History Highest Level of Education: high school/GED Highest Grade Completed: 12th Vocational Year Completed: N/A Number of College Years: 0 College Degree/Major: N/A Other Degree(s): N/A Preferred Learning Style: auditory HX of Learning Difficulties: Per mom the patient had a history of a learning disability in school and when he was in high school he needed to listen to process, instead of reading. He has to listen to books on tape to learn. Barriers to Learning: Dificulty with reading. Special Communication Needs: Books on tape Employment History Employment Unemployed Vocation/Occupational Hx: recently laid of from [employer] No. of Jobs in Last 5 Years: 1 Attendance: Normal Performance: Good History Have You Been in The ? No If Yes, Explain: N/A Type of Discharge: N/A Date of Discharge: N/A Current Mental Status Problem List: 1. Depression Mental Status Orientation: Person, Place, Situation Affect: Anxious, Angry, Variable Speech: Loud, WNL Neuro-vegetative: Energy Increased, Helpless, Hyperactivity, Sleep Disturbance Appearance Appearance- Dress/Hygiene: WNL Behaviors Thought Process: Irrational Thought Content: Entitled, Grandiose, Paranoid Memory: WNL Insight: Poor SI/HI Risk Assessment Past Suicidal Ideation/Attempts Yes Current Suicidal Ideation/Att Yes Past Homicidal Ideation/Att: No Current Homicidal Ideation/Attempts No Degree of Intent: States Intent Danger To: Self Gravely Disabled: Lack of Insight, Poor Impulse Control Risk Factors: Age (under 24 or over 65), High Anxiety/Distress, SA/MH Hospitalization(s), Hx of suicide attempt(s), Lack of concern outcome, Male, Substance Abuse Lethality Ratin - Conclusion and Recommendations for treatment - and discharge planning Summary: Pt is a 25 year old male, arriving to ER due to texting an ex girlfriend that he was going to kill himself, while he was intoxicated, pt states this was on Monday. He then didn't return home until today when he arrived his Father told him the police were looking for him, and he was brought here for further evlauation. Pt is aggravated and states "this is a dis service to anyone". Pt indicates he does not want to harm himself, and reports he only said that via text while he was drunk. Pt states he does not want to drink anymore and reports he was actually taking care of job related things today and was feeling positive until he had to come to the emergency room. Pt was admitted to [facility] last year 06/2016 and did not complete [facility], pt does not have current providers and is no longer taking his antidepressant. Pt tox screen is postive for [facility]. Pt lives with father and sister (see note, I spoke with sister). I also spoke with his Mother, who indicates pt sent her similar text message about self harm. At the very least pt is unpredictable, and impulsive. Mother states 'he is his own worse enemy". Pt had been discharged on Wellbutrin, but had been prescribed xanax and lexapro by an outpatient provider whom he no longer sees. He does not comply with medications. Consulted with Dr. Shane pt to be held over night for re eval in morning. Pt denying si, although had sent concerning texts this weekend to ex gf and Mother. Pt angry and impulsive. REY HERNANDEZ FUSE SPOOLER> 10/03/16 Pt was re-evaluated by crisis this morning following several verbal outbursts of profanity, agitation, and mood lability. Pt was sitting in his bed whistling loudly when this clinician entered his room. He provided minimal insight into the severity of the concerns that lead him to his ED visit. Pt took no responsibility for his behavior and blames others calling them names. This clinician spoke to pt's Mom who was very concerned for pt identifying that he has been having severe mood swings and she no longer recognizes her son. This clinician read pt's hx from his prior admit in Jun 2016 and pt has a hx of suicide attempts and impulsive behavior. Given family concerns, hx of suicide attempts, poor insight, impulsive behavior, and labile mood as well as suicidal text messages and disappearance for several days following the text messages this clinician has great concerns for pt's safety risks. Case reviewed with Dr. Siegel of Psychiatry and pt [facility] as pt is refusing to be admitted and wants to be discharged. When this clinician explained to pt that he will be admitted and why, he threw his lunch tray at this clinician and started yelling and swearing. He required security intervention and chemical restraint. ROMY UNDERWOOD FUSE SPOOLER> 10/04/16
--- NOTE | 2016-10-04 14:00 | NUR ---
AWAKENED FOR VITALS. OFFERS NO COMPLAINTS. Informed waiting has been performed.
--- NOTE | 2016-10-04 14:38 | NUR ---
[facility]'t [facility] bed [facility] pt as initially planned. Pt remains on PEC and a bed search is being done.
--- NOTE | 2016-10-04 15:46 | NUR ---
There are no inpt psych beds available that are in network with pt's insurance. Pt will be held in the ED for the night. Pt remains on PEC.
[2016-10-04 16:00] VITALS: BP 103/64
--- NOTE | 2016-10-04 16:00 | NUR ---
AWAKENED FOR VITALS. CIWA = 0. DROWSY BUT AROUSABLE. Informed waiting has been performed.
--- NOTE | 2016-10-04 18:30 | NUR ---
AWAKENED FOR VITALS. Informed waiting has been performed.
--- NOTE | 2016-10-04 19:07 | NUR ---
ASSUMED CARE OF PT PER RN JOANNE, PT SLEEPING IN RM WITH RR, WILL CONTINUE TO MONITOR VITAL SIGNS.
--- NOTE | 2016-10-04 23:16 | NUR ---
PT SLEEPING WITH RR, SLEEPING ON ABD, SITTER IN PLACE WILL CONTINUE TO MONITOR
--- NOTE | 2016-10-04 23:56 | NUR ---
PT SLEEPING WITH RR, SPOKE WITH DR MCDOWELL. PT DOES NOT NEED CIWA SINCE PT DID NOT COME IN FOR ANYTHING RELATED TO ALCOHOL. SITTER IN PLACE AT DOOR
--- NOTE | 2016-10-05 02:56 | NUR ---
PT SLEEPING WITH RR ON LEFT SIDE COVERED IN A BLANKET. SITTER IN PLACE IN , WILL CONTINUE TO MONITOR
--- NOTE | 2016-10-05 04:46 | NUR ---
PT SLEEPING WITH RR, ON RIGHT SIDE WITH BLANKET ON PT, SITTER IN PLACE IN BH
--- NOTE | 2016-10-05 06:44 | NUR ---
PT AMBULATED TO BATHROOM WITH A STEADY GAIT.
[2016-10-05 07:10] VITALS: BP 106/56
--- NOTE | 2016-10-05 07:47 | NUR ---
ASSUMED CARE OF PT AT THIS TIME. PT SLEEPING ON STRETCHER, SITTER REMAINS PRESENT. WILL CTM
--- NOTE | 2016-10-05 09:31 | NUR ---
PT. SISTER SANDOVAL CALLED, PT. STATES TO THIS WRITE THAT HE IS NOT INTERESTED IN SPEAKING TO HER BECAUSE SHE CAN NOT PICK HIM UP AND SHE IS USELESS. PT. STATES HE IS SICK OF BEING STUCK HERE AND THIS IS NOT FAIR, HIS MOM CAN SIGN HIM OUT AMA AND HE DOES NOT HAVE TO STAY HERE. I EXPLAINED TO PT THAT IT DOES NOT WORK THIS WAY UNFORTUNATELY AND I WOULD SPEAK TO HIS NURSE WELL CRISIS TO GET HIM AN ANSWER TO WHAT THE NEXT STEP IS IN HIS PLAN OF CARE. PT. BEGAN YELLING, THIS IS NOT FAIR, IT IS LIKE A CORRECTION HERE WHEN THIS WRITE BEGAN TO WALK AWAY FROM ROOM 15.
--- NOTE | 2016-10-05 09:35 | NUR ---
PT REQUESTING TO SPEAK TO RN, THIS RN APPROACHED THE ROOM PT STOOD UP AND WALKED TO DOORWAY, PT STATING "HOW LONG ARE YOU KEEPING ME IN THIS CAGE FOR, I WANT TO GO HOME" EXPLINED TO PT THAT WE ARE WAITING FOR A ROOM TO BECOME AVAILABLE. PT TURNED AROUND AND THREW BLANKET AGAINST WALL. SECURITY CALLED TO ROOM AND DR NATION AWARE
--- NOTE | 2016-10-05 09:45 | NUR ---
PT MEDICATED WITH SEROQUEL AND ATIVAN PO PER ORDER AT THIS TIME. PT SITTING BACK IN BED, SECUIRTY REMAINS PRESENT AND SITTER REMAINS PRESENT.
--- NOTE | 2016-10-05 10:42 | NUR ---
PT REMAINS IN ROOM, CALM AT THIS TIME. SITTER REMAINS PRESENT AT THIS TIME.
[2016-10-05 12:16] VITALS: BP 104/51
--- NOTE | 2016-10-05 13:10 | NUR ---
REPORT GIVEN TO [facility] ON [facility].
== END 2016-10-05 13:45 ==
LOC: ERH 17:25 → ERHI 22:18
PROVIDERS: Physician Assistant Medical; ADMIT Emergency Medicine
DX: R45.851 Suicidal ideations (principal); F12.10 Cannabis abuse, uncomplicated; F32.9 Major depressive disorder, single episode, unspecified
CPT/HCPCS: 80307; G0378; G0463; G0480; J1200; J1630; J3490

== ENCOUNTER 2016-10-04 12:06 | Inpatient (IN) | payer OTHER ==
[~2016-10-04] VITALS: Ht 172.7 cm; Wt 59.6 kg
--- NOTE | 2016-10-04 15:34 | ED PSYCHIATRIST/APRN CONSULT ---
Psychiatrist/OCCUPATIONAL HEALTH RN ED Consult Assessment and Plan: Case discussed with Coach Driver. There will not be a bed available for the patient on [facility] today. We are looking into other psychiatric facilities. Patient apparently threw his lunch tray at Coach Driver and got milk on her when he was told he needed inpatient treatment. I went to see the patient at 2:58 pm. He was sound asleep. Apparently he was recently medicated. IMPRESSION: Bed search in progress.
[2016-10-05 13:57] VITALS: BP 113/75
--- NOTE | 2016-10-05 14:32 | NUR ---
25 Y/O MALE ADMITTED TO [facility] ON PEC. PT CAME TO THE ER AFTER TEXTING A FRIEND WHILE INTOXICATED THAT HE WAS GOING TO KILL HIMSELF.PT HAD NOT BEEN HOME SINCE MONDAY.PT STATES HE HAS NOT BEEN IN TREATMENT SINCE HE LEFT [facility] 06/2016. HE HAS ALSO NOT BEEN TAKING ANY MEDICATIONS.HE HAS BEEN DRINKING SEVERAL TIMES A WEEK AND SMOKING MARIJUANA. FAMILY DESCRIBES PT UNPREDICTABLE AND IMPULSIVE. IN THE ED WHEN PT WAS TOLD HE WOULD BE ADMITTED TO THE HOSPITAL HE WAS AGITATED AND THREW HIS LUNCH TRAY AND WAS USING FOUL LANGUAGE.HE WAS MEDICATED WITH ATIVAN AND SEROQUEL WITH GOOD EFFECT. UPON ADMISSION PT IS ANGRY AND ASKING TO LEAVE. HE DENIES ANYTHOUGHTS OF SUICIDE OR SELF HARM AND HE DENIED AH OR VH. HE IS IRRITATED BY THE ADMISSION PROCEDURE. DR HARRISON IN TO SEE PT FOR H&P
--- NOTE | 2016-10-05 14:57 | History & Physical ---
General Information and HPI History of Present Illness: This young male was admitted after threatening to hurt himself and sending messages to his girlfriend and his family called the police that brought him to the hospital for mental status evaluation and for suicidal ideation. Patient claims that he was admitted by mistake and he does not intend to harm himself because the things are looking up and he has been trying to find a job. He denies any specific physical problems recently. He claims he was admitted a few months ago and was discharged on a medicine that he only took for a week or so and then stopped on his own. He has not seen any psychiatrist or therapist recently. He denies any previous significant medical history illness and denies any major surgeries or injuries or accidents. He claims his family is healthy his parents are alive although and he has been living with his father and a sister and her baby in the house in [place]. Allergies/Medications Allergies: Uncoded Allergies: CATS/DOGS/POLLEN (05/13/13) Home Med list No Known Home Medications Past History Travel History Traveled to [place] past 21 day No Medical History Neurological: NONE EENT: NONE Cardiovascular: NONE Respiratory: asthma Gastrointestinal: NONE Hepatic: NONE Renal: NONE Musculoskeletal: NONE Psychiatric: depression, insomnia, substance abuse (regular use of Marijuana ), had used Vyvanse "from friends" until 02/2016 had drank a six-pack of beer for two weeks in 05/2016 but then gave that up "because it was making me more depressed" Endocrine: NONE Blood Disorders: NONE Cancer(s): NONE 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 Past Family/Social History Family History Relations & Conditions if any FATHER (Depression). MOTHER (DepressionAsthma). Psychosocial History Who Do You Live With? parent Services at Home: None Primary Language: Faroese Functional Ability ADLs Independent: dressing, eating, toileting, bathing. Ambulation: independent IADLs Independent: housework, telephone, transportation, medication admin. Review of Systems Review of Systems Constitutional: Reports: see HPI. Denies: malaise, weakness, unexplained weight loss. EENTM: Denies: no symptoms. Cardiovascular: Denies: no symptoms. Respiratory: Denies: no symptoms, cough, short of breath. GI: Denies: no symptoms. Genitourinary: Denies: no symptoms. Musculoskeletal: Denies: no symptoms. Skin: Denies: no symptoms. Neurological/Psychological: Reports: see HPI, depressed, emotional problems. Hematologic/Endocrine: Denies: no symptoms. Immunologic/Allergic: Denies: no symptoms. 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 moist/pink Neck Supple, No JVD, No thryomegaly, +2 Carotid Pulse wo Bruit Lymphatic Cervical nl Cardiovascular Regular Rate, Normal S1, Normal S2, No Murmurs, Gallops, Rubs Lungs Clear to Auscultation, Normal Air Movement Abdomen Normal Bowel Sounds, Soft, No Tenderness, No Hepatospenomegaly, No Masses Neurological Exam Findings: Normal Gait, Normal Speech, Strength at 5/5 X4 Ext, Normal Tone, Cranial Nerves 3-12 NL, Reflexes 2+ Cranial Nerves II through XII: Within normal limits and intact and Extremities No Clubbing, No Cyanosis, No Edema, No Tenderness/Swelling Assessment/Plan Assessment: This young male is admitted for depression and suicidal ideation when brought in by police and was called by the family since he had expressed some intention to harm himself to his ex-girlfriend. He is fairly stable from medical standpoint at this time. His CBC as well as electrolytes and liver functions are all normal and alcohol level was less than 10 although he admits that he drank a bottle of Tico Anderson few days ago. The urine toxicology is positive for marijuana and that he admits to smoking off and on. There is no need for any medical workup or treatment at this time. As Ranked By This Provider Problem List: 1. Depression 2. Suicidal ideation 3. Cannabis abuse Miscellaneous Miscellaneous Documentation Attending Case Discussed With: YVETTE MELO MD Primary Care Physician: WILBER LO APRN Patient sees these Specialists none Level of Patient Care: GOVIND Dewitt Attending MD Review Statement Attending Statement Attending MD Statement: examined this patient, reviewed EMR data (avail), discussed with nursing Attending Assessment/Plan: This young male is admitted for depression and suicidal ideation. He is stable from medical standpoint and does not require any workup or treatment from medical standpoint and further treatment will be carried out for psychiatrist recommendations.
[2016-10-05 16:19] VITALS: BP 137/65
--- NOTE | 2016-10-05 21:57 | NUR ---
PT IS ISOLATIVE AND WITHDRAWN, REMAINING IN BED FOR MAJORITY OF EVENING. REFUSED 1999 VITAL SIGNS AND WRAP UP MEETING. PT HAS A IRRITABLE EDGE BUT IS COOPERATIVE. NO COMPLAINTS OR SI REPORTED TO THIS MHW. PT HAS A STABLE MOOD AND IRRITABLE/FLAT AFFECT
[2016-10-06] VITALS (8 sets, daily range): BP systolic 140–146; BP diastolic 73–82
--- NOTE | 2016-10-06 06:40 | NUR ---
PATIENT SLEPT ALL NIGHT.
--- NOTE | 2016-10-06 11:56 | NUR ---
PT HAS BEEN CALM AND COOPERATIVE. 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 HE WANTS TO MOVE FORWARD AND DO THE RIGHT THING. HE DENIES ANY THOUGHTS OF SUICIDE OR SELF HARM. HE IS COMPLIANT WITH HIS MED REGIME
--- NOTE | 2016-10-06 12:24 | CPS MD/APRN INITIAL ASSE PSYCH ---
Psychiatric Admission Quenching Car Operator's Note Reviewed: Yes Patient Seen and Examined: Yes Identifying Information: Patient is a 25 year old male. Chief Complaint: "I don't know why I'm here." Reaction to Hospitalization: "I want to put this behind me." History of Present Illness Onset of Illness: Patient is a 25-year old male who presented to ED by police after allegedly texting his ex-girlfriend that he was going to kill himself while he was intoxicated on 09/24/16. Patient described that on 2015 he had been drinking Tico Justin and had wanted to get attention from his ex-girlfriend, so he messaged her texts saying he wanted to kill himself. The patient reported it was the alcohol that he consumed that precipitated his actions. He denied actually wanting to harm himself at that time, or going to any means to harm himself. He reported that recently his ex-girlfriend was concerned about him related to receiving these texts and brought the texts to the police which led to his arrival to ED for psychiatric evaluation. 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 He additionally reported protective factors of his "mom " and "dad." He denies active and passive suicidal ideation, plans and intent. He denied homicidal ideation. There was no evidence of psychotic process, paranoia, or delusions. He reported depression of 2/10 (10 being the worst) and anxiety of 1/ 10 (10 being the worst) secondary to being hospitalized. Utox was positive for Cannabis. Circumstances Leading to Admission: alcohol and cannabis abuse; medication non adherence; texts stating suicidal threats and threats of self harm to ex-girlfriend and mother. Problem(s) Justifying Need for Admission: Suicidal ideation Past Psychiatric History Past Diagnosis(es)- if any: MDD, single episode; severe with suicidal ideation/plans Cannabis Use Disorder; severe R/O Alcohol Use Disorder Past Precipitating Factors- if any: substance abuse, medication non adherence, treatment non adherence, risky/ impulsive behaviors. - Include inpatient and outpatient treatment Treatment History: [facility] (07/19/16 - 07/26/16) [facility] (08/01/16 - 08/26/16 - patient did not complete program). Patient reported no outpatient psychiatric treatment since leaving [facility]. History of Suicide Attempts or Gestures Patient denied. Substance Abuse History: Alcohol - REMI: "a couple weeks ago." Reported "rare" use and when he does drink, drinking up to "4-5 nips at a time." Cannabis- REMI: "a few days ago." Reported smoking cannabis 1 x week, "a little bit." Tobacco - reports smoking 5-6 cigarettes daily. Allergies: Uncoded Allergies: CATS/DOGS/POLLEN (05/13/13) Home Med List: Patient reported being on no medications at present. - Include any medical condition(s) that may - impact the patient's recovery/remission Past Medical History: Asthma - stable, uncomplicated (reported last use of albuterol inhaler was "years ago"). 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 Reported he would like to live with mother post-discharge from [facility], given discord between him and sister. Significant Relationships (family/friends): "My parents" and "friends." Education: HS Diploma. 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 Vocation/Occupation: Unemployed at present. Reported having job opportunities at present which he is eager to pursue. Legal: None per pt. Per [place] Judicial site, no charges filed. Healthly Behaviors Screening Tobacco Screening Tobacco Use from ED Docu: Current Not Daily - If tobacco counseling indicated - the following topics are required. - #1 Recognizing dangerous situations. - #2 Coping Skills. - #3 Basic information about quitting. Status of Tobacco Cessation Counseling: #1, #2 AND #3 Completed Cessation Med Status: Nicotine Patch Ordered Alcohol Screening - ETOH screen POS if BAL >=80 or Audit-C>= M4/F3 Audit-C Score from Diag Assess: 9 Blood Alcohol Level: Lab Serum Alcohol < 10.0 MG/DL 10/03/16 2655 Alcohol Use Screening Results: Pos per Audit C &/or BAL - If ETOH counseling indicated - the following topics are required. - #1 Express concern about the patient's - drinking at unhealthy levels, include informing - of national norms for moderate drinking: - men <= 14 drinks/week, max 4 drinks/occasion - women <= 7 drinks/week, max 3 drinks/occasion - #2 Providing feedback, including linking alcohol to - negative physical effects (liver injury, hypertension) - negative emotional effects (relationship problems and - depression) - negative occupational consequences (reduced work - performance) - #3 Advising the patient to abstain from alcohol or - to drink below national norms for moderate drinking - (as listed above). Status of ETOH Use Counseling: #1, #2 AND #3 Completed. Metabolic Screening - Screen if on a Neuroleptic Medication - Metabolic screening should include: - Blood Pressure, BMI, Glucose or Hgb A1c, & a - Lipid profile from within the past 365 days. Metabolic Screening X]) Not Applicable, patient not on a neuroleptic. OR () Patient on a neuroleptic(s) . Enter below results for Glucose or Hemoglobin A1C, and lipid panel if obtained during the last 365 days. BMI: 19.900 Blood Pressure: 143/82 Laboratory Results (If applicable): n/a Exam and Plan Mental Status Examination Ambulation Status: Steady and independent Appearance: Tall, thin, daniels and mustache, well-groomed. Wears t-shirt and pants. Attitude towards examiner: Cooperative Psychomotor activity: WNL Behavior: WNL Quality of speech: Normal in rate, tone and volume. Affect: Full-range Mood: Calm Suicidal Ideation: Pt denies. Homicidal Ideation: Pt denies. Hallucinations: Pt denies AVH/TH. Paranoid/Delusional Material: None evident. Difficulties with thought organization: None evident. Insight: Limited Judgment: Limited Orientation: A&Ox4 Cognition: Grossly intact Memory Function: Grossly intact Estimate of intellectual functioning: Average Assets/Strengths Patient Identified Assets/Strengths: Supportive family, employment opportunities; HS education Impression/Plan Impression and Plan: Patient is a 25-year old male with a history of MDD, cannabis use disorder and R /o alcohol use disorder, presented to ED by police related to suicidal texts received from the patient's ex-girlfriend and mother. Placed on PEC for CPS hospitalization. Patient reported he had been intoxicated when he sent texts, in the context of unclear psychosocial stressors. Denies SI, plans and intent; denies HI; denies acute symptoms of depression and anxiety. No evidence of psychotic process. - Include all active medical diagnosis that require tx DSM 5 Diagnosis(es): Unspecified depression Cannabis use disorder, moderate R/O alcohol use disorder - Initial Tx Plan for Active Psych & Medical Conditions Treatment Plan: 1. Monitor the patient on unit for safety, suicidal ideation, mood. 2. Obtain collateral from family. 3. Continue Lexapro 10mg for depression/anxiety. 4. Smoking cessation counseling was completed. Nicotine patch/gum ordered. 5. H&P per hand therapist team. 6. When patient is clinically stable, will be discharged and referred to Dual IOP level of care. * Patient signed in voluntarily and then signed termination of voluntary today. - Factors that would help patient function - in a less restrictive setting. Factors: Alleviation of anxiety/depression/suicidal ideation. Stable mood. Medication and treatment adherence. Abstinence from substances.
--- NOTE | 2016-10-06 12:51 | NUR ---
Pt signed in voluntary & and then a 3-day paper on today's date 10/06/16 @ 1245pm, Haydee Simon APRN notified and aware.
--- NOTE | 2016-10-06 16:19 | SOCIAL WORKER PROG NOTE PSYCH ---
Social Work Progress Note Progress Note Met with patient for the first time toady since re-admission to the hospital. Patient presented with normal mood and affect. He reported feeling good today and denied any suicidal thoughts. Patient reported that he made a poor decision when he was under the influence of alcohol on and sent a text to his ex girlfriend about wanting to kill himself. Patient denies any actual plans or intent to do so. Patient shared greatly about this breakup during his last admission and has had a rough time coping with it. He does report that recently more positive things have been occuring in his life and he is feeling more optomistic about his life. Patient recently started working with [employer] to find a job. 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 [place] appears future oriented at this time. He has signed 3 day paper to discharge the hospital. Patient is attending groups on unit and appears motivated at this time. Patient disclose alcohol use which appears to be negatively impacting his life and he tends to abuse it. He recognized this and plans to stop drinking moving forward. We discussed having a family meeting esther with his mother.
--- NOTE | 2016-10-06 16:19 | SOCIAL WORKER TX PLAN PSYCH ---
Treatment Plan - Please Document: - Evidence that there is ongoing collaboration between - the patient and the interdisciplinary team, - including the patient's active participation and - responsibility for engaging in the treatment regimen, - and that the treatment plan is individualized and - relevant to the patient's conditions. - Treatment plan should reflect documentation indicating - that all active therapeutic efforts are included. Strengths/Capabilities: The patient has shown good insight into his need for treatment in the past. He also has a supportive family. Physical Limitations (Interventions): None noted Patient Identified Trmt Goals: " I want to get back to my life." Discharge Plan: IOP Problem/Goals #1 Problem #1: suicidal ideation Goal (Short Term): Today I will attend 2 groups Today I will identify 2 stressors Today I will identify 2 positive supports Today I will work on recognizing 3 emotions I am feeling Goal (Corporate Associate): Be free of suicidal thoughts/attempts Develop 3 coping skills to deal with depression Identify 3 positive support systems to call in crisis Develop a crisis plan with 3 gore people Identify 2 positive traits per week about myself Identify 2 things I have to look forward to Identify 2 positive people in my life and 1 thing I appreciate about them Interventions: Learn ways to manage depressive symptoms accordingly and identify positive supports to manage life stressors and mood fluctuations. Modalities: Encourage groups, education on depression, provide CBT treatment, family meeting. DSM5/PS Stressors/Medical Prob Diagnosis' (DSM 5, Stressors, Medical): Unspecified depression Cannabis use disorder, moderate R/O alcohol use disorder Current GAF: 25 Treatment Team - Responsibilities of members of the treatment team include: - Medication Management- MD or LEARNING SPECIALIST - Medication Administration and Monitoring- Nurse - Group Therapy- Occupational Therapist - 1:1 Therapy,Disch Planning,family involvement-Cabinet Mounter
--- NOTE | 2016-10-06 21:25 | NUR ---
PT HAS BEEN COOPERATIVE, COMPLIANT WITH UNIT RULES, AND COOPERATIVE WITH STAFF AND PEERS. PT RECIEVED A VISIT FROM MOTHER TODAY AND SEEMED TO BE APPRECIATIVE OF THIS. PT HAS BEEN SPENDING TIME IN [place], SOCIALIZING WITH WITH PEERS AND STAFF. PT MOOD IS STABLE, AFFECT IS FULL RANGE, APPETITE IS NORMAL, AND COMMUNICATION IS NORMAL. PT HAS VOICED OPINION THROUGHOUT SHIFT ABOUT WANTING TO BE OFF THE UNIT, THROUGH HE IS WILLING TO BE COMPLIANT AND COOPERATIVE WHILE HE IS HERE. PT IS OVERALL RELATIVELY PLEASANT IN [place], AND HAS NO MAJOR COMPLAINTS. PT DENIES SI AT THIS TIME.
[2016-10-07] VITALS (8 sets, daily range): BP systolic 121–143; BP diastolic 59–85
--- NOTE | 2016-10-07 04:28 | NUR ---
PT SLEPT WELL, NO ISSUES.
--- NOTE | 2016-10-07 10:24 | SOCIAL WORKER PROG NOTE PSYCH ---
Social Work Progress Note Progress Note Met with Piyush today, he stated he is feeling better, denies SI/HI, no psychosis. He reports he is sleeping well, appetite is good. 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 He hope to move in with his girlfriend. He also agrees to follow- up with [facility]. Piyush agrees that he has to stay clean and sober. Although he resides with his Father he wants to have a meeting with his Mother. Plan for meeting on Monday10/10/16 at 10:30am. Phoned Richard/Nadege #[phone], [phone], left clinical on his voicemail requested call back for Auth for weekend. Asked for cont. stay with expected discharge on 10/10/16. Intake is scheduled for 10/10/16 at 12:45pm.
--- NOTE | 2016-10-07 11:01 | SOCIAL WORKER PROG NOTE PSYCH ---
Social Work Progress Note Progress Note Haydee would like family meeting on Monday. Voice message left for Pt's Mom requesting to schedule a family meeting for Monday.
--- NOTE | 2016-10-07 13:37 | NUR ---
PT IS COMPLIANT AND COOPERATIVE. MOOD IS STABLE WITH A FULL RANGE OF AFFECT. PT DENIES SI AT THIS TIME, NO COMPLAINTS OFFERED. PT IS PRESENT IN THE COMMUNITY AND INTERACTING WELL WITH PEERS AND STAFF. PT IS ATTENDING GROUPS. VITALS ARE STABLE, APPETITE IS GOOD.
--- NOTE | 2016-10-07 13:55 | CP SOUTH PROGRESS NOTE PSYCH ---
Psych (Inpt) Progress Note Progress Note Include the following elements, when applicable: Involvement in the active treatment of the patient with behavioral observations of the patient and the patient's response to the treatment. Review of the ongoing treatment process in the context of the treatment plan. Indication of how multi-disciplinary staff members are carrying out the treatment plan. Plans for future interventions and recommendations for revision of the treatment plan. Liaison with other physicians/providers. Progress Note: [I discussed this patient's progress to date, current mental status, treatment process in the context of the treatment plan, and discharge planning with staff/ team in the daily morning inpatient team meeting. I also met with the patient myself in individual session.] SUBJECTIVE: "I'm alright, I just really want to go home." OBJECTIVE: Current Medications Sig/Abelardo Start time Last Medication Dose Route Stop Time Status Admin Escitalopram Oxalate 10 MG DAILY 10/06 1000 AC 10/07 PO 0820 Gabapentin 200 MG Q2 HRS NEEDED PRN 10/05 1900 AC PO Gabapentin 300 MG TID 10/05 1824 AC 10/07 PO 0820 Lorazepam 1 MG Q1 NEEDED PRN 10/05 1830 AC PO Lorazepam 2 MG Q1 PRN 10/05 1830 AC PO Lorazepam 1 MG Q2P PRN 10/05 1715 AC 10/05 PO 1635 Lorazepam 2 MG Q2P PRN 10/05 1715 AC PO Nicotine 7 MG 0800 10/07 0800 AC TOP Nicotine 2 MG Q2P PRN 10/06 1315 AC 10/07 PO 1325 Trazodone HCl 50 MG AT BEDTIME NEED.. 10/05 2200 AC 10/06 PO 2130 Vital Signs Date Time Temp Pulse Resp B/P Pulse O2 O2 Flow FiO2 Ox Delivery Rate 10/07 1210 58 137/77 10/07 1209 58 137/77 10/07 0737 96.9 72 121/59 10/07 0728 96.9 72 121/59 10/06 1999 97.2 86 140/75 10/06 1954 97.2 86 140/75 10/06 1708 92 10/06 1623 100 143/73 10/06 1559 100 143/73 ASSESSMENT: *Patient signed termination of voluntary on , 10/06/16 at 12:45PM. On encounter today, patient was A&Ox4. Speech was normal in rate, tone and volume. Eye contact appropriate. Behavior calm and cooperative. Mood "OK." Affect euthymic. Denied active and passive SI, plans and intent. Denied HI. Denied AVH. No evidence of underlying psychotic process. Insight and judgement appear fair. Thought process goal-directed, linear, organized. Thought content appropriate. 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 He spoke positively about resuming [email or web address] classes to obtain his [email or web address] license. 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 Reported depression of 3/10 (10 being the worst) and anxiety 4/10 (10 being the worst). Reported that circumstance leading to [facility]PS admission was related to alcohol use on 09/24/16, and that he did not mean to state he would harm himself through text message which was sent to his ex-girlfriend. He reported that if he had not been drinking, than he wouldn't have sent text. Demonstrated fair insight on how alcohol negatively influences his behaviors. He denied SI plans or intent during that time. Patient reported tolerating retrial of Lexapro 10mg well. He denied untoward medication effects, and is agreeable to continue taking. PLAN: 1. Continue monitoring the patient on unit for safety, mood and suicidal ideation. 2. Continue Lexapro 10mg daily. 3. Anticipate family meeting with mother on 10/10/16. 4. Dispo planning per primary team.
--- NOTE | 2016-10-07 14:48 | SOCIAL WORKER PROG NOTE PSYCH ---
Social Work Progress Note Progress Note On 10/05/16- Imani butcher Nadege approved 3 days 10/05/16 to 10/07/16 with review on 10/07 with her at [phone] ext [phone]. The Auth number was [id number]. This clinician called Imani today to do the concurrent review and her voice message identified that she is out of the office today and to contact her supervisor paper testing Kat Arevalo at [phone] ext [phone]. Kat's voice message also identified she was out of the office and to call to find out who the case was reassigned to. This clinician spoke with Precious who informed that the case was reassigned to Richard Zamora at [phone] ext [phone]. This clinician left him a voice message requesting a call back to do the concurrent review.
--- NOTE | 2016-10-07 15:32 | SOCIAL WORKER PROG NOTE PSYCH ---
Social Work Progress Note Progress Note Pt's Mom called back and a family meeting is scheduled for Monday at 1:30pm.
--- NOTE | 2016-10-07 21:53 | NUR ---
PT IS VISIBLE ON UNIT, SOCIALIZING WITH PEERS AND STAFF. VERY COOPERATIVE AND COMPLIANT. ATTENDED WRAP UP MEETING AND PARTICIPATED. NO COMPLAINTS OR SI REPORTED. PT HAS A STABLE MOOD AND FULL RANGE AFFECT.
[2016-10-08] VITALS (8 sets, daily range): BP systolic 134–137; BP diastolic 71–81
--- NOTE | 2016-10-08 11:18 | NUR ---
PT IS ATTENDING GROUPS AND IDENTIFIED HIS GOAL TODAY WAS TO STAY POSITIVE. HE IS COMPLIANT WITH HIS MED REGIME AND TREATMENT PLAN. HE IS HOPEFUL FOR DISCHARGE EARLY IN THE WEEK. HE DENIES ANY THOUGHTS OF SUICIDE OR SELF HARM
--- NOTE | 2016-10-08 13:22 | CP SOUTH PROGRESS NOTE PSYCH ---
Psych (Inpt) Progress Note Progress Note Include the following elements, when applicable: Involvement in the active treatment of the patient with behavioral observations of the patient and the patient's response to the treatment. Review of the ongoing treatment process in the context of the treatment plan. Indication of how multi-disciplinary staff members are carrying out the treatment plan. Plans for future interventions and recommendations for revision of the treatment plan. Liaison with other physicians/providers. Progress Note: Doing well, no behavioral issues. Interacting w/ peers. Mother coming Monday for a family meeting. 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 Some tossing/turning he attributed to not being in his bed. No AE to lexapro. No other issues. MSE: young man, well related, well groomed. No psychomotor slowing, mild agitation (leg fidgeting stated he usually is more active). Good eye contact. No tics or tremor noted. Speech wnl. Mood euthymic and affect full. Thought process linear. No noted thought content abnormalities. No evidence SI/HI. Not internally preoccupied and no evidence hallucinations. Insight fair, judgment adequate. A: 25 y.o man s/p suicidal statement to exgf. Mood good and reactive. Tolerating med re-starting w/o issue. Plan: Continue current plan of care. Educated about smoking cessation on d/c, he appeared somewhat motivated and stated that he had been cutting down w/ecig and hopes to continue this.
--- NOTE | 2016-10-08 17:52 | NUR ---
PT IS COMPLIANT AND COOPERATIVE. MOOD IS STABLE WITH A FULL RANGE OF AFFECT. PT DENIES SI AT THIS TIME, NO COMPLAINTS OFFERED. PT IS PRESENT IN THE COMMUNITY AND INTERACTING WELL WITH PEERS AND STAFF. VITALS ARE STABLE, APPETITE IS GOOD.
--- NOTE | 2016-10-09 06:43 | NUR ---
PATIENT SLEPT ALL NIGHT.
[2016-10-09 08:10] VITALS: BP 147/67
[2016-10-09 08:11] VITALS: BP 147/67
[2016-10-09 11:31] VITALS: BP 147/74
[2016-10-09 12:07] VITALS: BP 147/74
--- NOTE | 2016-10-09 14:18 | CP SOUTH PROGRESS NOTE PSYCH ---
Psych (Inpt) Progress Note Progress Note Include the following elements, when applicable: Involvement in the active treatment of the patient with behavioral observations of the patient and the patient's response to the treatment. Review of the ongoing treatment process in the context of the treatment plan. Indication of how multi-disciplinary staff members are carrying out the treatment plan. Plans for future interventions and recommendations for revision of the treatment plan. Liaison with other physicians/providers. Progress Note: Doing well, pleasant and well related. Talked a bit about his alcohol use and family hx of alcohol (father and his uncles). Stated that he quit a last job when he was drinking regularly; minimized impact of alcohol initially but then talked about it at some length. Discussed complete abstinence from drinking he stated that he drinks occasionally but binge drinks when he does; gets very depressed when he drinks. 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 MSE: young man, well related, well groomed. Leg fidgety. Good eye contact. No movement d/o. Speech wnl. Mood euthymic and affect full. Thought process linear and coherent. Minimizing hx of alcohol use likely. No evidence of delusions or other thought content abnormalities. No evidence SI/HI. Not internally preoccupied and no evidence hallucinations. Insight fair, judgment adequate. A: 25 y.o man s/p suicidal statement to exgf. Mood good and reactive. Future oriented and tolerating meds w/o issue. Plan: Continue current plan of care. Educated about abstinence from alcohol and risk of depressive thoughts when intoxicated, poor decision making when intoxicated. No indication that he is withdrawing, d/c CIWA.
[2016-10-09 15:57] VITALS: BP 130/81
[2016-10-09 19:46] VITALS: BP 146/79
--- NOTE | 2016-10-09 20:45 | NUR ---
PT HAS BEEN CALM, COOPERATIVE WITH STAFF AND PEERS, AND COMPLIANT WITH UNIT RULES THROUGHOUT SHIFT. PT HAS BEEN IN [place] SOCIALIZING WITH OTHERS AND WATCHING TELEVISION. PT DEMEANOR IS PLEASANT AND HAS NOT MAJOR CMPLAINTS AT THIS TIME. MOOD SI STABLE, AFFECT IS FULL RANGE, APPETITE IS BHUMIKA, AND COMMUNICATION IS NORMAL. PT DENIES SI AT THIS TIME.
--- NOTE | 2016-10-09 21:45 | NUR ---
Pt mood is stable affect is full range no behavioral issues noted during the day, Pt is compliant and cooperative with the staff, vital signs are stable no scoring on ciwa c/o no pain. Pt appetite is good will continue to monitor the pt overnight.
[2016-10-10 07:50] VITALS: BP 136/77
[2016-10-10] MEDS ORDERED: LEXAPRO10 M1 PO (08:36)
[2016-10-10] MEDS ORDERED: NICORELIEF2 MG PO (08:36)
[2016-10-10] MEDS ORDERED: NICOTINE PATCH1 EAC1 TOP (08:36)
[2016-10-10] MEDS ORDERED: GABAPENTIN300 M2 PO (08:36)
--- NOTE | 2016-10-10 10:33 | CP SOUTH PROGRESS NOTE PSYCH ---
Psych (Inpt) Progress Note Progress Note Include the following elements, when applicable: Involvement in the active treatment of the patient with behavioral observations of the patient and the patient's response to the treatment. Review of the ongoing treatment process in the context of the treatment plan. Indication of how multi-disciplinary staff members are carrying out the treatment plan. Plans for future interventions and recommendations for revision of the treatment plan. Liaison with other physicians/providers. Progress Note: [I discussed this patient's progress to date, current mental status, treatment process in the context of the treatment plan, and discharge planning with staff/ team in the daily morning inpatient team meeting. I also met with the patient myself in individual session.] SUBJECTIVE: "I'm feeling a lot better." OBJECTIVE: Current Medications Sig/Abelardo Start time Last Medication Dose Route Stop Time Status Admin Escitalopram Oxalate 10 MG DAILY 10/06 1000 AC 10/10 PO 0835 Gabapentin 200 MG Q2 HRS NEEDED PRN 10/05 1900 AC PO Gabapentin 300 MG TID 10/05 1824 AC 10/10 PO 0835 Lorazepam 1 MG Q1 NEEDED PRN 10/05 1830 DC PO Lorazepam 2 MG Q1 PRN 10/05 1830 DC PO Lorazepam 1 MG Q2P PRN 10/05 1715 DC 10/05 PO 1635 Lorazepam 2 MG Q2P PRN 10/05 1715 DC PO Nicotine 4 MG .STK-MED ONE 10/09 1624 DC PO 10/09 1625 Nicotine 7 MG 0800 10/07 0800 AC 10/09 TOP 0929 Nicotine 2 MG Q2P PRN 10/06 1315 AC 10/10 PO 0927 Trazodone HCl 50 MG AT BEDTIME NEED.. 10/05 2200 AC 10/10 PO 0000 Vital Signs Date Time Temp Pulse Resp B/P Pulse O2 O2 Flow FiO2 Ox Delivery Rate 10/10 0750 96.7 72 136/77 10/09 1946 97.5 72 146/79 10/09 1557 69 130/81 10/09 1207 67 147/74 10/09 1131 67 147/74 ASSESSMENT: Met with the patient today, on the date of discharge. Patient presented alert and oriented to person, place, time and situation. Eye contact was appropriate. Speech was normal in rate, tone and volume. Mood appeared euthymic. Affect was full-range. He reported feeling good. He had no complaints. Reported depression of 2/10 (10 being the worst) and anxiety of 0/10 (10 being the worst). He denied feeling hopeless, helpless, and worthless. He denied active and passive suicidal ideation, plans and intent. He denied homicidal ideation. He identified protective factors of "my parents," "myself," and "my [employer] license." He stated and also believed he will not harm himself or others. There was no evidence of underlying psychotic process, delusions or paranoia. He reported being motivated to abstain from all substances and to attend [facility]. He reported tolerating all medications well and denied untoward medication effects. He reported feeling safe and ready for discharge. PLAN: 1. Discharge to home and mother. 2. F/u with [facility] intake on 10/11/16 at 12:45PM. 3. [facility] 10/[facility]/16 at 4PM for smoking cessation. 4. Abstain from all substances. 5. Discharge prescriptions were called into [facility] (#[phone]), today. 6. In the event of an emergency, call [phone] to nearest emergency department. Patient verbalized understanding of all instruction.
--- NOTE | 2016-10-10 10:35 | DISCHARGE SUMMARY REPORT-PSYCH ---
Visit Information Visit Dates/Diagnosis' Admission Date: 10/05/16 Discharge Date: 10/10/16 Reason for Admission: Suicidal ideation Psy Discharge Primary Diag: Unspecified Depression Psy Discharge Secondary Diag: Cannabis Use Disorder, moderate; R/O Alcohol use disorder; Asthma (stable, uncomplicated) Hospital Course Significant Lab Findings: Lab Urine Cannabis Screen > 80.00 NG/ML H 10/03/16 1746 Course Complications: None. Consultations: The patient was seen for admission history and physical by Dr. Vasyl Rendon. Please see his note for additional details. Allergies: Uncoded Allergies: CATS/DOGS/POLLEN (05/13/13) Hospital Course/TX Response: The patient was monitored on the unit for safety, suicidal ideation and mood disorder. He participated in multimodal treatments on the unit. The patient was started on Lexapro 10mg every morning for depression/anxiety, and Gabapentin 300mg three times a day for anxiety. Nicoderm CQ 7mg patch was started daily and Nicotine gum 2mg q2 hours as needed was started for smoking cessation. The patient tolerated all medications well and denied untoward medication effects. During the course of hospitalization, the patient's mood and affect improved. Suicidal ideation remitted. He developed improved insight into alcohol use and cannabis abuse, and developed motivation to remain abstinent from all substances. A family meeting was held with the patient, his mother, and Liza Mcrae LCSW prior to discharge. Patient's treatment progress, level of safety, and safety/discharge planning were reviewed. The patient and patient's mother were in favor of patient's discharge, abstinence from all substances and discharge plan to follow-up with [facility] on 10/11/16 at 12:45PM. On the date of discharge, 10/10/16, the patient presented alert and oriented to person, place, time and situation. Eye contact was appropriate. Speech was normal in rate, tone and volume. Mood appeared euthymic. Affect was full-range. He reported feeling good. He had no complaints. Reported depression of 2/10 (10 being the worst) and anxiety of 0/10 (10 being the worst). He denied feeling hopeless, helpless, and worthless. He denied active and passive suicidal ideation, plans and intent. He denied homicidal ideation. He identified protective factors of "my parents," "myself," and "my [employer] license." He stated and also believed he will not harm himself or others. There was no evidence of underlying psychotic process, delusions or paranoia. He reported being motivated to abstain from all substances and to attend [facility]. He reported tolerating all medications well and denied untoward medication effects. He reported feeling safe and ready for discharge. Discharge HBIPS - Tobacco Use Treatment Offered Post DC Medications Offered: Script Given-See Med List Post DC Tobacco Treatment Plan: [facility] Appt Date: 10/19/16 Program Appt Time: 1600 - EtOH/Drug Use D/O Treatment Offered Post DC Medications Offered: Med Not Indicated for D/O Post DC EtOH/SubAbuse TX Plan: Other SubAbuse/Dual [facility] Program Appt Date: 10/11/16 Program Appt Time: 1245 Metabolic Screening - Screen if on a Neuroleptic Medication - Metabolic screening should include: - Blood Pressure, BMI, Glucose or Hgb A1c, & a - Lipid profile from within the past 365 days. Metabolic Screening ([X]) Not Applicable, patient not on a neuroleptic. OR () Patient on a neuroleptic(s) . Enter below results for Glucose or Hemoglobin A1C, and lipid panel if obtained during the last 365 days. BMI: 19.900 Blood Pressure: 141/77 Laboratory Results (If applicable): n/a Discharge Instructions General Discharge Information Discharge Medications: Discharge Medications- (Dose, route, freq, indication): HOME MEDICATION LIST START taking these NEW Home Medications: Nicotine (Nicotine Dose: On the skin, DAILY @8 AM Qty: 14 called-in to pharmacy Patch) 7 MG/24 HOUR 7 Milligram for smoking cessation Refills: 0 PATCH.TD24 Apply 1 patch topically every morning and remove before bedtime. Nicotine Dose: ORAL, EVERY 2 HOURS Qty: 1 box called-in to pharmacy (Nicorelief) 2 MG 2 Milligram NEEDED as needed for Refills: 0 GUM nicotine craving Gabapentin Dose: ORAL, THREE TIMES DAILY Qty: 42 called-in to pharmacy (Gabapentin) 300 MG 300 Milligram for anxiety Refills: 0 CAPSULE Take 1 capsule by mouth three times a day. Escitalopram Oxalate Dose: ORAL, DAILY for Qty: 14 called- in to pharmacy (Lexapro) 10 MG 10 Milligram depression/anxiety Refills: 0 TABLET Take 1 tablet by mouth every morning. Discharge prescriptions were called into below pharmacy today. [facility] [place] [address] Multiple Neuroleptics: ([X]) Not Applicable OR Document below three failed attempts at monotherapy, or a plan to taper to monotherapy, or augmentation of Clozapine. () Patient's Diet: Regular. Patient's Activity: No restrictions. DC Disposition: Patient to return to home and mother. Recommendations: Patient was advised to please take medications. He was advised to abstain from all substances. He was advised to attend AA meetings for support in sobriety. He was advised to follow-up with [facility] on 10/19/16 at 4PM for assistance with smoking cessation. He was advised to follow-up with [facility] intake on 10/11/16 at 12:45PM. The patient was advised that in the event of an emergency, to call [phone] to nearest emergency department. The patient verbalized understanding of all instructions. Referred To: [facility] [address], [place] [phone] Intake scheduled on 10/11/16 at 12:45PM. [facility] [address], [place] [phone] Walk-in to group on 10/19/16 at 4PM with [facility] appointment card. Copies To: [facility]
--- NOTE | 2016-10-10 10:56 | SOCIAL WORKER PROG NOTE PSYCH ---
Social Work Progress Note Progress Note Patient to discharge the hospital today. Patient denies SI/HI/AH/VH at present and is looking forward to returning home today. Patient is forward thinking, talking about looking forward to seek employment. Patients mother came in for family meeting today to discuss any questions or concerns she may have. She expressed her concern primarily around patients alcohol use and poor deicison making when under the influence. Patient agreed and has agreed to refrain from alcohol use along with marijuana use going forward. Patient has intake at [facility] tomorrow, 10/11/16, at 12:45pm. Patient did not follow through with [facility] recommendation upon discharge last [facility] admission, but has agreed to attend this time around. Patient is able to contract for safety at this time.
[2016-10-10 12:35] VITALS: BP 141/77
--- NOTE | 2016-10-10 13:44 | NUR ---
Patient discharged [place] [facility] [place] by his mother. Patient denies SI, intent or plan. Patient identifies need to abstain from ETOH and remain med compliant. Patient to f/u with IOP.
--- NOTE | 2016-10-26 10:57 | IP INCIDENTAL NOTE PSYCH ---
Incidental Note Notation: This commercial loan underwriter was called on CPS to evaluate patient who was brought to ED overnight after admitting to drinking alcohol and making suicidal texts to his mother. Crisis collateral and evaluation reviewed. BAL was (-) in ED. Patient presently denies active and passive suicidal ideation, plans and intent. Identified protective factors of "my family" and "to get a job." He stated and also believed he will not harm himself or others. He denied homicidal ideation. Denied acute symptoms of depression and anxiety, reported feeling "some" sadness related to recent slip on alcohol. Patient motivated to resuming [facility] for management of substance use and psychiatric symptoms, which he is currently an active patient in. Per Aromatherapist, [facility] is agreeable to have him return to program. Patient's mother is in favor of discharge plan for patient to resume [facility]. Case was reviewed with Dr. Siegel by admissions clinician, who is also in agreement to patient being discharged home and return to [facility].
== END 2016-10-10 13:50 | DRG 897 ==
LOC: CP SOUTH 12:06 → EDPENDDISTM 10-05 10:04 → ENPENDDIS 10-05 10:04 → CP SOUTH 10-05 10:04
PROVIDERS: ADMIT Psychiatry & Neurology Psychiatry
DX: F12.20 Cannabis dependence, uncomplicated (principal); J45.909 Unspecified asthma, uncomplicated
CPT/HCPCS: 93005; 93010

== ENCOUNTER 2016-10-25 22:12 | Emergency (ER) | payer OTHER ==
[~2016-10-25 22:12] MED LIST changes: +GABAPENTIN300 M2 PO; +LEXAPRO10 M1 PO; +NICORELIEF2 MG PO; +NICOTINE PATCH1 EAC1 TOP
--- NOTE | 2016-10-25 22:37 | ED PSYCHIATRIC COMPLAINT ---
See Addendum History of Present Illness General Chief Complaint: Psychiatric Related Complaint Stated Complaint: BIBA FOR EVAL SI Source: patient, old records, EMS Exam Limitations: no limitations Vital Signs & Intake/Output Vital Signs & Intake/Output Vital Signs Date Time Temp Pulse Resp B/P Pulse O2 O2 Flow FiO2 Ox Delivery Rate 10/26 0626 97.1 60 18 108/54 98 10/26 0126 96.0 66 16 102/51 97 Room Air 10/25 2233 Room Air 10/25 2220 94.1 94 16 120/66 97 Room Air ED Intake and Output 10/26 0000 10/25 1200 Intake Total 250 Output Total Balance 250 Intake, Oral 250 Allergies Uncoded Allergies: CATS/DOGS/POLLEN (05/13/13) Reconcile Medications Escitalopram Oxalate (Lexapro) 10 MG TABLET 10 MG PO DAILY depression/anxiety Take 1 tablet by mouth every morning. Gabapentin 300 MG CAPSULE 300 MG PO TID anxiety Take 1 capsule by mouth three times a day. Nicotine (Nicotine Patch) 7 MG/24 HOUR PATCH.TD24 7 MG TOP 0800 smoking cessation Apply 1 patch topically every morning and remove before bedtime. Nicotine (Nicorelief) 2 MG GUM 2 MG PO Q2P PRN nicotine craving Triage Note: PT BIBA FOR +SI. PT DENIES CURRENT SI OR HI. PT IS ON PEER. Triage Nurses Notes Reviewed? yes HPI: Patient presents with suicidal ideations but no plan. Patient states that he has been compliant with his medications however he started drinking again last night. Patient states that when he drinks he gets very depressed. Patient denies any homicidal ideations. Patient has been admitted to Inpatient Psychiatry in the past for similar symptoms and he feels that he will probably require admission again. Patient denies any hallucinations. There is no history of withdrawal seizures or DTs. (REBECCA GRANADOS,MAURICE Álvarez) Past History Travel History Traveled to [place] past 21 day No Medical History Any Pertinent Medical History? 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 Psychosocial History Who do you live with Family Services at Home None What is your primary language Uzbek Tobacco Use: Current Daily Use Daily Tobacco Use Amount/Type: => 5 Cigarettes daily ETOH Use: heavy use Illicit Drug Use: denies illicit drug use Family History Family History, If Any: FATHER (Depression). MOTHER (DepressionAsthma). Hx Contributory? No (REBECCA GRANADOS,MAURICE Álvarez) Review of Systems Review of Systems Constitutional: Reports: no symptoms. EENTM: Reports: no symptoms. Respiratory: Reports: no symptoms. Cardiovascular: Reports: no symptoms. GI: Reports: no symptoms. Genitourinary: Reports: no symptoms. Musculoskeletal: Reports: no symptoms. Skin: Reports: no symptoms. Neurological/Psychological: Reports: see HPI, depressed. Hematologic/Endocrine: Reports: no symptoms. Immunologic/Allergic: Reports: no symptoms. All Other Systems: Reviewed and Negative (REBECCA GRANADOS,MAURICE Álvarez) Physical Exam Physical Exam General Appearance: well developed/nourished, mild distress Head: atraumatic Eyes: Bilateral: PERRL, EOMI. Ears, Nose, Throat: normal pharynx, normal ENT inspection, hearing grossly normal Neck: normal inspection, supple Respiratory: normal breath sounds Cardiovascular: regular rate/rhythm Gastrointestinal: soft, non-tender Extremities: normal range of motion Neurological/Psychiatric: no motor/sensory deficits, awake, alert, calm, oriented x 3 Appearance/Memory/Insight: appropriate appearance, appropriate insight Behavoir/Eye Contact/Speech: cooperative, normal speech, good eye contact Thoughts/Hallucinations: normal thought pattern, no apparent hallucination Skin: intact, normal color, warm/dry SAD PERSONS Done? CRISIS CONSULT OBTAINED (REBECCA GRANADOS,MAURICE Álvarez) Progress Differential Diagnosis: drug intoxication, drug overdose, drug withdrawal, electrolyte abnormality Plan of Care: Orders Procedure Date/time Status URINE DRUGS OF ABUSE 10/26 0750 Active Continuous Observation Monitor 10/25 2236 Active ETHANOL 10/25 2236 Complete COMPREHENSIVE METABOLIC PANEL 10/25 2236 Complete CBC WITHOUT DIFFERENTIAL 10/25 2236 Complete ED CRISIS PSYCH CONSULT 10/25 2236 Active Laboratory Tests 10/26/16 0750: Methadone Screen Pending, Barbiturate Screen Pending, Ur Phencyclidine Scrn Pending, Amphetamines Screen Pending, U Benzodiazepines Scrn Pending, Urine Cocaine Screen Pending, Urine Cannabis Screen Pending 10/25/16 2245: Anion Gap 11, Estimated GFR > 60, BUN/Creatinine Ratio 13.3, Glucose 93, Calcium 9.4, Total Bilirubin 0.9, AST 19, ALT 32, Alkaline Phosphatase 90, Total Protein 7.0, Albumin 4.3, Globulin 2.7, Albumin/Globulin Ratio 1.6, CBC w Diff NO MAN DIFF REQ, RBC 5.23, MCV 93.2, MCH 31.5 H, RDW 12.8, MPV 8.5, Gran % 61.7, Lymphocytes % 26.6, Monocytes % 8.9, Eosinophils % 2.4, Basophils % 0.4, Absolute Granulocytes 5.4, Absolute Lymphocytes 2.3, Absolute Monocytes 0.8 H, Absolute Eosinophils 0.2, Absolute Basophils 0, PUBS MCHC 33.9, Serum Alcohol < 10.0 Hand-Off Endorsed To: STEVE BAZAN DO Endorsed Time: 0700 Pending: consult (REBECCA GRANADOS,MAURICE Álvarez) Departure Departure Disposition: STILL A PATIENT Condition: Stable Clinical Impression Primary Impression: Depression Secondary Impressions: Suicidal ideations Referrals: WILBER LO APRN (PCP/Family) Departure Forms: Customer Survey General Discharge Information (REBECCA GRANADOS,MAURICE Álvarez) Departure Comments 10/26/16 8 AM The patient was signed out to me by Dr. Savage at 7 AM. He is pending evaluation and disposition by crisis. (STEVE BAZAN DO)
[2016-10-25 22:55] LABS: ABSOLUTE BASOPHIL COUNT 0 /CUMM (0.0-0.2); ABSOLUTE EOSINOPHIL COUNT 0.2 /CUMM (0.0-0.7); ABSOLUTE GRANULOCYTE CT 5.4 /CUMM (1.4-6.5); ABSOLUTE LYMPH COUNT 2.3 /CUMM (1.2-3.4); ABSOLUTE MONOCYTE COUNT 0.8 /CUMM (0.10-0.60); BASOPHIL % 0.4 % (0.0-2.0); EOSINOPHIL % 2.4 % (0-5); GRANULOCYTE % 61.7 % (42.2-75.2); HEMATOCRIT 48.8 % (42-52); MEAN CORPUSCULAR HGB 31.5 PG (27.0-31.0); MEAN CORPUSCULAR HGB CONC 33.9 G/DL (33.0-37.0); MEAN CORPUSCULAR VOLUME 93.2 FL (80.0-94.0); MEAN PLATELET VOLUME 8.5 FL (7.4-10.4); PLATELET COUNT 306 /CUMM (130-400); RBC DISTRIBUTION WIDTH 12.8 % (11.5-14.5); RED BLOOD CELL CT 5.23 /CUMM (4.70-6.10); WHITE BLOOD CELL COUNT 8.8 /CUMM (4.8-10.8)
--- NOTE | 2016-10-26 08:34 | ED PSY CRISIS COLLATERAL NOTE ---
Collateral Note Collateral Note Family/Inform/Babatunde Contacts: Voice message left for pt's mother Lupis Mauro .
--- NOTE | 2016-10-26 08:44 | ED PSYCH CRISIS CONSULTATION ---
Crisis Consult Basic Assessment Date of Consult: 10/26/16 Responsible Person/Accompanied By: self Insurance Authorization: Insurance #1: Insurance name: [employer] Phone number: Policy number: [id number] Group number: [id number] Authorization number: ED Provider: Patient's ED Provider: REBECCA GRANADOS,MAURICE Álvarez Primary Care Physician: Patient's PCP: WILBER LO APRN PCP's Current Psychiatrist: [facility] Chief Complaint: Psychiatric Related Complaint Patient's Quote: "I sould not have drank." Present Illness: Pt is a 25yo male brought to the ED on a PEER last night. PEER states, "Piyush has been diagnosed and hospitalized in the past and recently for depression. On the evening of 10/25/16 Piyush may have been consuming alcohol when he told his mother that he would 'show everyone that he was not joking'. Piyush then left the residence in his vehicle to an unknown location. Piyush later sent his mother several text messages to include,'the only reason I don't kill myself is because it would make you sad. I want to every day I wake up and you don't me.' Up until 2 weeks ago Piyush resided in [place] with his father until he was evicted. The eviction, a failed job interview, a bad 'first date', and alcohol may have contributed to this evenings depressing behavior. Over the past two weeks Piyush has been staying with his mother in [place] or sleeping in his vehicle." Upon crisis eval pt smiles and states "I should have not drank. Every time I drink it just makes me feel worse and this happens." When this clinical told pt he did not have a BAL in the ED, he responded. "I told them that I drank like 3 hours earlier, but still even when I am sober after I drank I still get depressed and feel shitty. I just need to not drink." Pt explains that he has been doing well since his discharge from [facility] and consistently going to [facility], but "I slipped up yesterday. I get depressed when i drink." Pt took responsibility for his actions and shows insight. Pt admits that he was feeling more stressed because of the stressors (as identified above). Pt was able to identify healthier ways to deal with his stress rather than drinking such as going for a walk or taking a nap to calm down. This insight appears to be progress from his last CPS admission on 10/03/16 when he has no insight and did not take responsibility. Pt is denying any active SI/HI/SH. Pt admits that he did text his Mom those statements, but no longer has the suicidal thoughts. Pt reports that he was in a [employer] parking lot when he sent his Mom the text, and then she talked him in to coming back home and the police arrived to take him to the hospital. Pt denies any hx suicide attempts or hx of suicide attempts. Pt declines readmits to CPS and would like to return to IOP. He agrees to reach out for help if the suicidal thoughts return. When this clinician addressed that pt' s utox is positive for cannabis, pt admits that he smoked 1x right after his d/c from [facility], but has not smoked it since. When asked how much he drank yesterday he replied, "I'm a lightweight. I only drank 1/3 of a bottle of wine and then I felt shitty." He reports that was his 1st time drinking since his discharge from [facility]. Crisis spoke to Pt's Mom Lupis Calhoun who also thought it was appropriate for pt to be discharged to return to IOP treatment. She reports that pt was doing much better since his his discharge from [facility] and his tx in IOP. She reports that he has been compliant with his tx and his mood has selma much better. "It's just when he drinks, he turns into a different person." Mom says she does not have any concerns for his safety and would like him to return home. She explains that she just wanted him to understand the seriousness of what happens when he drinks and makes the suicidal statements that he will be sent to the ED and held. Crisis spoke with Pt's provider Soni from his previous CPS admit and she also things that the most beneficial plan for pt would be to return to IOP. She will come meet with pt in the ED propr to his discharge. This clinician also spoke to Pt's IOP clinician Lupis Martinez who had no concerns about him being discharged and he may return to IOP tomorrow. Case reviewed with Dr. Siegel of Psychiatry and he approved pt to discharge home and return to IOP. Patient's Address: [address] [place] [address] Other Phone Number: Who Do You Live With? Family Family/Informants Interviewed: Mom Allergies - Uncoded Allergies: CATS/DOGS/POLLEN (05/13/13) Current Medications - Scheduled Medications Escitalopram Oxalate (Lexapro) 10 MG TABLET 10 MG PO DAILY depression/anxiety #14 TAB Prescribed by SONI FLORES APRN on 10/10/16 Gabapentin 300 MG CAPSULE 300 MG PO TID anxiety #42 CAP Prescribed by SONI FLORES APRN on 10/10/16 Nicotine (Nicotine Patch) 7 MG/24 HOUR PATCH.TD24 7 MG TOP 0800 smoking cessation #14 PATCH Prescribed by SONI FLORES APRN on 10/10/16 Scheduled PRN Medications Nicotine (Nicorelief) 2 MG GUM 2 MG PO Q2P PRN nicotine craving #30 GUM Prescribed by SONI FLORES APRN on 10/10/16 Laboratory Results: Laboratory Tests 10/26/16 0750: Urine Opiates Screen < 100.00, Methadone Screen < 40, Barbiturate Screen < 60, Ur Phencyclidine Scrn < 6.00, Amphetamines Screen 125, U Benzodiazepines Scrn < 85, Urine Cocaine Screen < 50, Urine Cannabis Screen 75.00 H 10/25/16 2245: Anion Gap 11, Estimated GFR > 60, BUN/Creatinine Ratio 13.3, Glucose 93, Calcium 9.4, Total Bilirubin 0.9, AST 19, ALT 32, Alkaline Phosphatase 90, Total Protein 7.0, Albumin 4.3, Globulin 2.7, Albumin/Globulin Ratio 1.6, CBC w Diff NO MAN DIFF REQ, RBC 5.23, MCV 93.2, MCH 31.5 H, RDW 12.8, MPV 8.5, Gran % 61.7, Lymphocytes % 26.6, Monocytes % 8.9, Eosinophils % 2.4, Basophils % 0.4, Absolute Granulocytes 5.4, Absolute Lymphocytes 2.3, Absolute Monocytes 0.8 H, Absolute Eosinophils 0.2, Absolute Basophils 0, PUBS MCHC 33.9, Serum Alcohol < 10.0 Past History Past Medical History Neurological: NONE EENT: NONE Cardiovascular: NONE Respiratory: asthma Gastrointestinal: NONE Hepatic: NONE Renal: NONE Musculoskeletal: NONE Psychiatric: depression, insomnia, substance abuse (regular use of Marijuana ), had used Vyvanse "from friends" until 02/2016 had drank a six-pack of beer for two weeks in 05/2016 but then gave that up "because it was making me more depressed" Endocrine: NONE Blood Disorders: NONE Cancer(s): NONE 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 Psychosocial History Strengths/Capabilities: The patient has shown good insight into his need for treatment is motivated to return to [facility]. He also has a supportive family. 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, severe recurrent Cannabis Use D/O Substance Use/Abuse History Drug Use/Abuse Substances Used/Abused Yes Substance Used/Abused Alcohol Last Used yesterday How much used/taken 1/3 of a bottle of wine Route of use po Substance Abuse Treatment Substance Abuse Treatment Past Substance Abuse TX Yes Inpatient Treatment Yes Outpatient Treatment Yes Location of Treatment [place] Reason for Treatment Alcohol and cannabis use Dates of Treatment 2016 to current Response to Treatment variable Current Mental Status Mental Status Orientation: Person, Place, Situation Affect: WNL Speech: WNL Neuro-vegetative: WNL Appearance Appearance- Dress/Hygiene: well groomed, good eye contact Behaviors Thought Process: WNL Thought Content: WNL Memory: WNL Insight: WNL SI/HI Risk Assessment Past Suicidal Ideation/Attempts Yes Current Suicidal Ideation/Att No Past Homicidal Ideation/Att: No Current Homicidal Ideation/Attempts No Degree of Intent: None Risk Factors: age (under 24/over 65), substance abuse, male Lethality Ratin (mild) PTSD Checklist PTSD Done? patient declined ED Management Sitter: Yes Restraints: No DSM5/PS Stressors/Medical Prob Diagnosis' (DSM 5, Stressors, Medical): Unspecified [id number], alcohol use d/o med f10.20, cannabis use d/o mod f12.20 Current GAF: 43 Departure Disposition Psych Medical Clearance Date: 10/26/16 Medically Cleared at: 0830 Time Started: 0830 Time Ended: 0900 Psychiatrist Consulted: Bandar Siegel MD Date Disposition Established: 10/26/16 Time Disposition Established: 0900 Plan for Disposition - Modality: IOP Facility: [facility] Follow-up Appt Date: 10/27/16 Rationale for Disposition: pt not actively suicidal. pt agreesw to stay away from alcohol and marijuana. he is motivated for IOp tx. Pt agrees to return to the ED if SI returns. Referrals WILBER LO APRN (PCP/Family)
[2016-10-26 11:48] VITALS: BP 112/62
== END 2016-10-26 11:48 ==
LOC: ERH 22:12
PROVIDERS: Emergency Medicine
DX: F32.9 Major depressive disorder, single episode, unspecified (principal); R45.851 Suicidal ideations; F10.10 Alcohol abuse, uncomplicated
CPT/HCPCS: 80307; G0463; G0480